=== PATIENT | female | born 1950 | race Caucasian/White ===

== ENCOUNTER → 2019-02-01 10:27 | Emergency (ER) | payer MEDICARE ==
[~2019-02-01 10:27] MED LIST: Diltiazem IV push/loading dose 5 MG/ML 5 ML vial (25 mg) IV PUSH ONE; HYDROmorphone TAB* 4 MG PO ONE; NS 0.9% 1000 ML** 1,000 ML IV ONE
--- NOTE | 2019-02-01 10:47 | ED ---
Palpitations / Dysrhythmia - HPI Summary HPI Summary: The patient is a 68 y/o F presenting to [facility] with a chief complaint of sudden onset fast heart palpitations starting yesterday 01/31/2019 and persisting into today 02/01/2019. She reports that last week, she was starting to go through a cardiac clearance for hip surgery due to hx of intermittent episodes of atrial fibrillation. She had seen Dr. Garcias and Dr. Larson and everything looked suitable until she went for an echocardiogram; she began having palpitations at this time, but they dissipated until yesterday when she went for a nuclear stress test. Since then, she's been experiencing constant palpitations. She denies CP and SOB. There are no aggravating or alleviating factors. Currently, she states, "This is the worst I've ever felt," but she is not in pain. She notes that she had been using Dilaudid for pain control of the right hip but ran out of the medications a few days ago, which she suspects is why she is having the palpitations. She previously came to the ED for dehydration a few weeks ago, and she reports she has been feeling better other than having difficulty sleeping. She was also previously on Eliquis for afib, but she stopped taking it because she didn't like it. Hx of HTN. FHx of cardiac disease including MN (father) and Afib (brother). 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 - History of Current Complaint Chief Complaint: EDDysrhythmPalp Time Seen by Provider: 02/01/19 10:33 Hx Obtained From: Patient Onset/Duration: Sudden Onset, Lasting Days - starting yesterday 01/31/2019, Still Present Timing: Constant Severity Initially: Mild Severity Currently: Moderate Character: Fast Aggravating: Nothing - possibly due to running out of Dilaudid Alleviating: Nothing - Allergy/Home Medications Allergies/Adverse Reactions: Allergies Allergy/AdvReac Type Severity Reaction Status Date / Time No Known Allergies Allergy Verified 02/01/19 10:32 Home Medications: Home Medications Furosemide TAB* [Lasix TAB*] 40 mg PO .TWICE WEEKLY 02/01/19 [History Confirmed 02/01/19] Lisinopril TAB* [Prinivil TAB*] 20 mg PO DAILY 02/01/19 [History Confirmed 02/01] Metoprolol Succinate XL TAB* [Toprol XL TAB*] 100 mg PO BID 02/01/19 [History Confirmed 02/01/19] Milk Thistle Seed Extract [Milk Thistle] 140 mg PO DAILY 02/01/19 [History Confirmed 02/01/19] Spironolactone TAB* [Aldactone TAB*] 25 mg PO DAILY 02/01/19 [History Confirmed 02/01/19] PMH/Surg Hx/FS Hx/Imm Hx Endocrine/Hematology History: Denies: Hx Diabetes Cardiovascular History: Reports: Hx Atrial Fibrillation, Hx Hypertension - Surgical History Surgical History: None Surgery Procedure, Year, and Place: none Infectious Disease History: No Infectious Disease History: Denies: Traveled Outside the [place] in Last 30 Days - Family History Known Family History: Positive: Cardiac Disease - father with fatal MN, brother with afib - Social History Alcohol Use: None Hx Substance Use: Yes Substance Use Type: Reports: None Substance Use Comment - Amount & Last Used: 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 Negative: Chest Pain Negative: Shortness Of Breath Positive: Other - right hip pain secondary to dislocation All Other Systems Reviewed And Are Negative: Yes Physical Exam - Summary Physical Exam Summary: Appearance: Well-appearing, Well-nourished, lying in bed comfortably Skin: Warm, dry, no obvious rash Eyes: sclera anicteric, no conjunctival pallor ENT: mucous membranes moist, pharynx appears normal Neck: Supple, nontender Respiratory: Clear to auscultation, no signs of respiratory distress Cardiovascular: Known to be tachycardic with HR of 150 bpm. No murmurs. Normal distal pulses in tibial and radial bilaterally. Abdomen: Soft, nontender, normal active bowel sounds present Musculoskeletal: Normal, Strength/ROM Intact Neurological: A&Ox3, awake and alert, mentation is normal, speech is fluent and appropriate Psychiatric: affect is normal, does not appear anxious or depressed Triage Information Reviewed: Yes Vital Signs On Initial Exam: Initial Vitals Temp Pulse Resp BP Pulse Ox 98.6 F 161 20 128/96 95 02/01/19 10:28 02/01/19 10:28 02/01/19 10:28 02/01/19 10:28 02/01/19 10:28 Vital Signs Reviewed: Yes Diagnostics - Vital Signs Vital Signs Temp Pulse Resp BP Pulse Ox 02/01/19 10:28 98.6 F 161 20 128/96 95 - Laboratory Result Diagrams: 02/01/19 11:18 02/01/19 11:18 Lab Statement: Any lab studies that have been ordered have been reviewed, and results considered in the medical decision making process. - EKG 1031 Cardiac Rate: Other Rate - 151 bpm EKG Rhythm: Atrial Flutter Summary of EKG Findings: Atrial flutter with 2:1 AVB. 1212 Cardiac Rate: Other Rate - 65 BPM Summary of EKG Findings: SR with periods of atrial fibrillation. Re-Evaluation - Re-Evaluation First Eval Re-Evaluation Time: 12:00 Change: Improved Comment: Per nurse, patient states her heart palpitations have resolved after medication. Second Eval Re-Evaluation Time: 12:35 Comment: I spoke with the patient concerning results thus far. Third Eval Re-Evaluation Time: 13:15 Comment: I discussed discharge plan with the patient. Course/Dx - Course Course Of Treatment: The patient is a 68 y/o F with hx of intermittent episodes of atrial fibrillation presenting to [facility] with a chief complaint of sudden onset fast heart palpitations starting yesterday during a nuclear stress test and persisting into today without CP or SOB. Previously on Eliquis for afib but she stopped taking it. Also reports pain in right hip treated with Dilaudid that she has ran out of. Hx of HTN. FHx of cardiac disease including MN (father ) and Afib (brother). Upon physical exam, the patient is known to have atrial fibrillation and is currently tachycardiac at 150 bpm. Blood work reveals 11.8, RBCs, Hgb of 16.7, Hct of 50, MCH of 32, abs neuts of 9.8, carbon dioxide of 20 , BUN of 42, creatinine of 1.27, glucose of 122, AST of 54, ALT of 56, but is otherwise normal. First troponin is 0.00. EKG reveals atrial flutter at 150 bpm with 2:1 AVB. Second EKG reveals SR at 65 BPM with periods of atrial fibrillation. In the ED course, the patient was administered Ns, Diltiazem Hcl, and Dilaudid. I spoke with the [facility] pharmacy and Dr. Garcias's office concerning the prescriptions that the patient has used since it appears that she had one prescription for Oxycodone early in January and one for Hydromorphone 60 tablets on 01/15, both prescribed by Dr. Garcias. I spoke with Dr. Mccormick at 1305 to update her on the patient's prescription history and plan for discharge with hydromorphone 4mg rx for one week. She is advised to follow up with Dr. Garcias for further medication, and continue medication prescribed by Dr. Larson. Patient is diagnosed with atrial flutter. She agrees with discharge home. - Diagnoses Provider Diagnoses: Atrial flutter, Osteoarthritis of hip, unspecified - Physician Notifications Discussed Care Of Patient With: Marichuy Mccormick - PCP Time Discussed With Above Provider: 13:05 Instructed by Provider To: Other - I spoke with the pharmacy and Dr. Garcias's office concerning the patient's prescription history. I also spoke with Dr. Mccormick to update her on results of the patient's visit and discharge home with rx for hydromorphone. Discharge - Sign-Out/Discharge Documenting (check all that apply): Patient Departure - Patient will be discharged home. Patient Received Moderate/Deep Sedation with Procedure: No - Discharge Plan Condition: Good Disposition: HOME Prescriptions: HYDROmorphone TAB* [Dilaudid TAB*] 4 mg PO Q6H PRN 7 Days #28 tab MDD 4 PRN Reason: Pain Patient Education Materials: Atrial Flutter (ED) Referrals: [facility] [Outside] - 2 Days Dominique Garcias MD [Medical Doctor] - Tracy Larson MD [Medical Doctor] - Additional Instructions: I sent in a prescription for dilaudid 4 mg, 1 every 6 hrs, #28 to [facility] in [place]. This should last a week, and should carry you through until you can resolve the issues with Dr. Garcias's office and the pharmacy. In the ED we cannot write for further prescriptions for opioids, so that would have to be through your PCP or Dr. Garcias going forward. With respect to your heart condition, continue the medication prescribed by your doctor. If you have another episode, contact Dr. Larson's office. You should see her in any event in followup, as she might want to change your medication to better control your heart condition. - Billing Disposition and Condition Condition: GOOD Disposition: Home - Attestation Statements Document Initiated by Jamie: Yes Documenting Moriahibe: Emerald Mijares Provider For Whom Jamie is Documenting (Include Credential): Dr. Modesto Bustamante MD Scribe Attestation: I, Emerald Mijares, scribed for Dr. Modesto Bustamante MD on 02/02/19 at 1214. Scribe Documentation Reviewed: Yes Provider Attestation: The documentation as recorded by the Emerald riggs accurately reflects the service I personally performed and the decisions made by me, Dr. Modesto Bustamante MD Status of Jamie Document: Viewed
--- OUTSIDE RECORDS SUMMARY | 2019-02-01 11:24 | XMS REPORT | Continuity of Care Document ---
:1950 External Reference #:[id number] Author Name Tayler Morgan Care Team Providers Name Role Phone Marichuy Mccormick DO Primary Care Physician Unavailable Payers Date Identification Numbers Payment Provider Subscriber Policy Number: [id number] Medicare Joel Judd PayID: [id number] [address] [place] [address] Problems Active Problems Provider Date Chronic atrial fibrillation Tracy Larson M.D. Onset: 01/19/2019 Localized, primary osteoarthritis of the pelvic Dominique Garcias M.D. 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 Tobacco Use Start: Unknown Light tobacco smoker (10 or fewer cigarettes/day) Smoking Status Reviewed: 02/01/19 Light tobacco smoker (10 or fewer cigarettes/day) ETOH Use Denies alcohol use Tobacco Use Start: Unknown Patient is a current smoker, smokes every day Recreational Drug Use Former Drug User Recreational Drug Use Former Drug User Heroin many, many years ago Exercise Type/Frequency Exercises sporadically Allergies, Adverse Reactions, Alerts Description No Known Drug Allergies Medications Active Medications SIG Qnty Indications Ordering Date Provider Trazodone HCL 1 by mouth as 30tabs Marichuy Mccormick, 02/01/2019 50mg Tablets needed at DO bedtime Hydromorphone HCL take 1 tab every 60tabs M25.551 Dominique Garcias, 01/15/2019 2mg 8 hours as M.D. Tablets needed for pain Hospital Bed Hospital bed. 1units M25.551 Dominique Garcias, 01/15/2019 Ht: 65" Wt: M.D. 140lbs. Right hip arthritis. m16.11 Oxycodone-Acetaminophen 1 tab by mouth 30tabs M25.551 Dominique Garcias, 2018 every 12 hours M.D. 5-325mg Tablets as needed for pain Lisinopril 1 by mouth every Unknown 20mg Tablets day Metoprolol Succinate ER 1 by mouth bid Unknown 100mg Tablets ER 24HR Spironolactone 1 by mouth every Unknown 25mg Tablets day Furosemide 1 by mouth twice Unknown 40mg Tablets weekly Ambien 1/2 to 1 tab at Unknown 10mg Tablets bedtime as needed Milk Thistle 1 capsule daily Unknown 140mg Capsules (melatonin) History Medications Meloxicam take one tab twice Unknown - 02/01/2019 7.5mg Tablets daily as needed for pain, avoid other nsaids Oxycodone-Acetaminophen 1 tabs by mouth every Unknown - 01/18 5-325mg 4-6 hours as needed for Tablets pain C 500/Macarena Hips 1 by mouth every day Unknown - 02/01/2019 500mg Tablets Medications Administered in Office Medication SIG Qnty Indications Ordering Provider Date Inj, Regadenoson, 0.1 MG Mike Arvizu, DO [facility] 01/31/2019 Injection Technetium TC 99M Mike Arvizu, DO [facility] 01/31/2019 Tetrofosmin, Per Unit Dose Up To 40 Millicuries Injection Technetium TC 99M Mike Arvizu, DO [facility] 01/31/2019 Tetrofosmin, Per Unit Dose Up To 40 Millicuries Injection Vital Signs Date Vital Result Comment 02/01/2019 9:31am Height 65 inches 5'5" Weight 152.00 lb Heart Rate 161 /min 120 apically BP Systolic Sitting 130 mmHg BP Diastolic Sitting 98 mmHg O2 % BldC Oximetry 95 % BMI (Body Mass Index) 25.3 kg/m2 01/19/2019 10:00am Height 65 inches 5'5" Weight 153.00 lb with shoes BP Systolic Sitting 118 mmHg ule reg cuff BP Diastolic Sitting 76 mmHg ule reg cuff BP Systolic Standing 128 mmHg ule reg cuff BP Diastolic Standing 80 mmHg ule reg cuff BMI (Body Mass Index) 25.5 kg/m2 01/15/2019 2:39pm Height 65 inches 5'5" Weight 140.00 lb Heart Rate 68 /min BP Systolic 117 mmHg BP Diastolic 84 mmHg Body Temperature 97.7 F O2 % BldC Oximetry 98 % BMI (Body Mass Index) 23.3 kg/m2 Results Test Date Facility Test Result H/L Range Note Order 02/01/2019 [facility] In-House EKG <pending> Procedures Date Code Description Status 02/01/2019 14486 EKG Tracing & Interpretation Completed 01/23/2019 43590 ECHO Transthoracic, Real-Time 2D With Doppler And Color Completed Flow 01/23/2019 12795 ECHO Transthoracic, Real-Time 2D With Doppler And Color Completed Flow 01/19/2019 91391 EKG Tracing & Interpretation Completed Encounters Type Date Location Provider Dx Diagnosis Office Visit 01/19/2019 [facility] Tracy Larson, M16.11 Unilateral primary 9:40a Of [facility] [place] [facility] [place]. osteoarthritis, right hip Z01.810 Encounter for preprocedural cardiovascular examination I48.2 Chronic atrial fibrillation I10 Essential (primary) hypertension R06.02 Shortness of breath Z82.49 Family hx of ischem heart dis and oth dis of the circ sys Office Visit 01/15/2019 2:[facility]p [facility] Dominique Garcias, M25.551 Pain in right Of [facility] hip M16.11 Unilateral primary osteoarthritis, right hip Plan of Treatment Future Appointment(s):02/08/2019 11:40 am - Jp Joyner MD at [facility] Internal Medicine - [address]/14/2019 11:30 am - Mary Wade [facility]AutumnPAutumn at [place] Ijxwmbzscp41/22/2019 11:30 am - Dominique Garcias M.D. at [facility]02/16/2019 11:30 am - Dominique Dieter, M.D. at [facility]02/01/2019 - Marichuy Mccormick, DOI48.3 Typical atrial flutterFollow up:one weekI48.2 Chronic atrial fibrillation
--- OUTSIDE RECORDS SUMMARY | 2019-02-01 11:25 | XMS REPORT | Continuity of Care Document ---
:1950 External Reference #:[id number] Author Name Regina Luciano Care Team Providers Name Role Phone Marichuy Mccormick DO Primary Care Physician Unavailable Payers Date Identification Numbers Payment Provider Subscriber Policy Number: [id number] Medicare Joel Judd PayID: [id number] [address] [place] [address] Problems Active Problems Provider Date Chronic atrial fibrillation Tracy Larson M.D. Onset: 01/19/2019 Localized, primary osteoarthritis of the pelvic Dominique Garcias M.D. 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 Tobacco Use Start: Unknown Light tobacco smoker (10 or fewer cigarettes/day) Smoking Status Reviewed: 01/19/19 Light tobacco smoker (10 or fewer cigarettes/day) ETOH Use Denies alcohol use Tobacco Use Start: Unknown Patient is a current smoker, smokes every day Recreational Drug Use Former Drug User Recreational Drug Use Former Drug User Heroin many, many years ago Exercise Type/Frequency Exercises sporadically Allergies, Adverse Reactions, Alerts Description No Known Drug Allergies Medications Active Medications SIG Qnty Indications Ordering Date Provider Hydromorphone HCL take 1 tab every 60tabs [...] by mouth twice Unknown 40mg Tablets weekly Meloxicam take one tab Unknown 7.5mg Tablets twice daily as needed for pain, avoid other nsaids Ambien 1/2 to 1 tab at Unknown 10mg Tablets bedtime as needed C 500/Macarena Hips 1 by mouth every Unknown 500mg day Tablets Milk Thistle 1 capsule daily Unknown 140mg Capsules (melatonin) History Medications Oxycodone-Acetaminophen 1 tabs by mouth Unknown - 5-325mg Tablets every 4-6 hours 01/18/2019 as needed for pain Vital Signs Date Vital Result Comment 01/19/2019 10:00am Height 65 inches 5'5" Weight [...] % BMI (Body Mass Index) 23.3 kg/m2 Procedures Date Code Description Status 01/23/2019 14887 ECHO Transthoracic, Real-Time 2D With Doppler And Color Completed Flow 01/23/2019 70351 ECHO Transthoracic, Real-Time 2D With Doppler And Color Completed Flow 01/19/2019 53443 EKG Tracing & Interpretation Completed Encounters Type Date Location Provider Dx Diagnosis Office Visit 01/19/2019 [facility] Tracy Larson, M16.11 Unilateral primary 9:40a Of [facility] AT [facility] [place]. osteoarthritis, right hip Z01.810 Encounter for preprocedural cardiovascular examination I48.2 Chronic atrial fibrillation I10 Essential (primary) hypertension R06.02 Shortness of breath Z82.49 Family hx of ischem heart dis and oth dis of the circ sys Office Visit 01/15/2019 2:00p [facility] Dominique Garcias, M25.551 Pain in right Of [facility] [place] hip M16.11 Unilateral primary osteoarthritis, right hip Plan of Treatment Future Appointment(s):02/01/2019 9:40 am - Marichuy Mccormick DO at [facility] Internal Medicine - [address]/14/2019 11:30 am - Mary Wade N.PAutumn at [facility]01/31/2019 11:00 am - Mike Arvizu DO FACC at [facility]03/01/2019 11:30 am - Dominique Garcias M.D. at [facility]02/16/2019 11:30 am - Dominique Garcias M.D. at [facility]01/19/2019 - Tracy Larson M.D.M16.11 Unilateral primary osteoarthritis, right hipZ01.810 Encounter for preprocedural cardiovascular examinationNew Orders:Stress Test, Pharmacologic Nuclear (Lexiscan), Scheduled: 01/31/19Follow up:after testing VOLUNTEER SPECIALIST or MDI48.2 Chronic atrial fibrillationNew Orders:Stress Test , Pharmacologic Nuclear (Lexiscan), Scheduled: 01/31/19Follow up:Release primary MD and aerial lineman: Echo, ECG, stress if available, all labs including lipds, most recent note from each of them.I10 Essential (primary) [id number] Shortness of breathNew Orders:Stress Test, Pharmacologic Nuclear (Lexiscan), Scheduled: 01/31/19Z82.49 Family history of ischemic heart disease and other diseases
--- OUTSIDE RECORDS SUMMARY | 2019-02-01 11:25 | XMS REPORT | Continuity of Care Document ---
:1950 External Reference #:[id number] Author Name Tayler Mariee Care Team Providers Name Role Phone Patient's Choice Primary Care Physician Unavailable Payers Date Identification Numbers Payment Provider Subscriber Policy Number: [id number] Medicare Joel Judd PayID: [id number] [address] [place] [address] Problems Active Problems Provider Date Chronic atrial fibrillation Tracy Larson M.D. Onset: 01/19/2019 Localized, primary osteoarthritis of the pelvic Dominique Garcias M.D. 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 at [facility]01/23/2019 7:45 am - Ica ECHO Schedule at [facility] 11:00 am - Mike Arvizu DO FACC at [facility]2018 11:30 am - Dominique Garcias M.D. at [facility].02/16/2019 11 :30 am - Dominique Garcias M.D. at [facility].01/19/2019 - Trcay Larson M.D.M16.11 Unilateral primary osteoarthritis, right hipZ01.810 Encounter for preprocedural cardiovascular examinationNew Orders:Stress Test, Pharmacologic Nuclear (Lexiscan), Scheduled: 01/31/19Follow up:after testing STRUCTURAL WORKER or MDI48.2 Chronic atrial fibrillationNew Orders:Echocardiogram, Scheduled: Stress Test, Pharmacologic Nuclear (Lexiscan), Scheduled: 01/31/19Follow up :Rlease primary MD and marine oil terminal superintendent: Echo, ECG, stress if available, all labs including lipds, most recent note from each of them.I10 Essential (primary) [id number] Shortness of breathNew Orders:Stress Test, Pharmacologic Nuclear (Lexiscan), Scheduled: 01/31/19
--- OUTSIDE RECORDS SUMMARY | 2019-02-01 11:25 | XMS REPORT | Continuity of Care Document ---
:1950 External Reference #:[id number] Author Name Regina Luciano Care Team Providers Name Role Phone Marichuy Mccormick DO Primary Care Physician Unavailable Payers Date Identification Numbers Payment Provider Subscriber Policy Number: [id number] Medicare Joel Judd PayID: [id number] [place] [address] Problems Active Problems Provider Date Chronic atrial fibrillation Tracy Larson M.D. Onset: 01/19/2019 Localized, primary osteoarthritis of the pelvic Dominique Garcias M.D. 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 osteoarthritis, right hip Z01.810 Encounter for [...] 9:40 am - Marichuy Mccormick DO at [facility] Internal Medicine - [address]/14/2019 11:30 am - Mary Wade N.PAutumn at [facility]01/31/2019 11:00 am - Mike Arvizu DO FACC at [facility]03/01/2019 11:30 am - Dominique Garcias M.D. at [facility].A.02/16/2019 11:30 am - Dominique Garcias M.D. at [facility]01/19/2019 - Tracy Larson M.D.M16.11 Unilateral primary osteoarthritis, right hipZ01.810 Encounter for preprocedural cardiovascular examinationNew Orders:Stress Test, Pharmacologic Nuclear (Lexiscan), Scheduled: 01/31/19Follow up:after testing DRAW PRESS OPERATOR or MDI48.2 Chronic atrial fibrillationNew Orders:Stress Test , Pharmacologic Nuclear (Lexiscan), Scheduled: 01/31/19Follow up:Release primary MD and castables worker: Echo, ECG, stress if available, all labs including lipds, most recent note from each of them.I10 Essential (primary) [id number] Shortness of breathNew Orders:Stress Test, Pharmacologic Nuclear (Lexiscan), Scheduled: 01/31/19Z82.49 Family history of ischemic heart disease and other diseases
--- OUTSIDE RECORDS SUMMARY | 2019-02-01 11:25 | XMS REPORT | Continuity of Care Document ---
:1950 External Reference #:[id number] Author Name Regina Luciano Care Team Providers Name Role Phone Marichuy Mccormick DO Primary Care Physician Unavailable Payers Date Identification Numbers Payment Provider Subscriber Policy Number: [id number] Medicare Joel Judd PayID: [id number] [place] [address] Problems Active Problems Provider Date Chronic atrial fibrillation Tracy Larson M.D. Onset: 01/19/2019 Localized, primary osteoarthritis of the pelvic Dominique Garcias M.D. 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 Tobacco Use Start: Unknown Light tobacco smoker [...] kg/m2 Procedures Date Code Description Status 01/23/2019 51840 ECHO Transthoracic, Real-Time 2D With Doppler And Color Completed Flow 01/23/2019 29764 ECHO Transthoracic, Real-Time 2D With Doppler And Color Completed Flow 01/19/2019 68030 EKG Tracing & Interpretation Completed Encounters Type Date Location Provider Dx Diagnosis Office Visit 01/19/2019 [facility] Tracy Larson, M16.11 Unilateral primary 9:40a Of [facility] AT [facility] [...] 9:40 am - Marichuy Mccormick DO at [facility] Internal Medicine - [address]/14/2019 11:30 am - Mary Wade N.PAutumn at [facility]01/31/2019 11:00 am - Mike Arvizu DO FACC at [facility]03/01/2019 11:30 am - Dominique Garcias M.D. at [facility].A.02/16/2019 11:30 am - Dominique Garcias M.D. at [facility]01/19/2019 - Tracy Larson M.D.M16.11 Unilateral primary osteoarthritis, right hipZ01.810 Encounter for preprocedural cardiovascular examinationNew Orders:Stress Test, Pharmacologic Nuclear (Lexiscan), Scheduled: 01/31/19Follow up:after testing LEAD HANDLER or MDI48.2 Chronic atrial fibrillationNew Orders:Stress Test , Pharmacologic Nuclear (Lexiscan), Scheduled: 01/31/19Follow up:Release primary MD and wet process operator: Echo, ECG, stress if available, all labs including lipds, most recent note from each of them.I10 Essential (primary) llwnpnsyyxaoW72.02 Shortness of breathNew Orders:Stress Test, Pharmacologic Nuclear (Lexiscan), Scheduled: 01/31/19Z82.49 Family history of ischemic heart disease and other diseases
--- OUTSIDE RECORDS SUMMARY | 2019-02-01 11:25 | XMS REPORT | Continuity of Care Document ---
:1950 External Reference #:[id number] Author Name Regina Luciano Care Team Providers Name Role Phone Marichuy Mccormick DO Primary Care Physician Unavailable Payers Date Identification Numbers Payment Provider Subscriber Policy Number: [id number] Medicare Joel Judd PayID: [id number] [place] [address] Problems Active Problems Provider Date Chronic atrial fibrillation Tracy Larson M.D. Onset: 01/19/2019 Localized, primary osteoarthritis of the pelvic Dominique Garcias M.D. 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 osteoarthritis, right hip [...] am - Marichuy Mccormick DO at [facility] Internal Medicine - [address]/14/2019 11:30 am - Mary Wade N.PAutumn at [facility]01/31/2019 11:00 am - Mike Arvizu DO FACC at [facility]03/01/2019 11:30 am - Dominique Garcias M.D. at [facility].A.02/16/2019 11:30 am - Dominique Garcias M.D. at [facility]01/19/2019 - Tracy Larson M.D.M16.11 Unilateral primary osteoarthritis, right hipZ01.810 Encounter for preprocedural cardiovascular examinationNew Orders:Stress Test, Pharmacologic Nuclear (Lexiscan), Scheduled: 01/31/19Follow up:after testing MILL TENDER SECOND OPERATOR or MDI48.2 Chronic atrial fibrillationNew Orders:Stress Test , Pharmacologic Nuclear (Lexiscan), Scheduled: 01/31/19Follow up:Release primary MD and power system electrical engineer: Echo, ECG, stress if available, all labs including lipds, most recent note from each of them.I10 Essential (primary) crgjkloqjmvvI48.02 Shortness of breathNew Orders:Stress Test, Pharmacologic Nuclear (Lexiscan), Scheduled: 01/31/19Z82.49 Family history of ischemic heart disease and other diseases
--- OUTSIDE RECORDS SUMMARY | 2019-02-01 11:25 | XMS REPORT | Continuity of Care Document ---
:1950 External Reference #:[id number] Author Name Nieves Dotson Care Team Providers Name Role Phone Patient's Choice Primary Care Physician Unavailable Payers Date Identification Numbers Payment Provider Subscriber Policy Number: [id number] Medicare Joel Judd PayID: [id number] [facility] [address] [place] [address] Problems Active Problems Provider Date Localized, primary osteoarthritis of the pelvic Dominique Garcias M.D. 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 ETOH Use Denies alcohol use Tobacco Use Start: Unknown Patient is a current smoker, smokes every day Smoking Status Reviewed: 01/15/19 Patient is a current smoker, smokes every day Exercise Type/Frequency Exercises sporadically Allergies, Adverse Reactions, [...] day Metoprolol Succinate ER 1 by mouth every Unknown day 100mg Tablets ER 24HR Spironolactone 1 by mouth every Unknown 25mg Tablets day Furosemide 1 by mouth every Unknown 40mg Tablets day Meloxicam take one tab Unknown 7.5mg Tablets twice daily as needed for pain, avoid other nsaids Oxycodone-Acetaminophen 1 tabs by mouth Unknown every 4-6 hours 5-325mg Tablets as needed for pain Ambien 1/2 to 1 tab at Unknown 10mg Tablets bedtime as needed Vital Signs Date Vital Result Comment 01/15/2019 2:39pm Height 65 inches 5'5" Weight 140.00 lb Heart Rate 68 /min BP Systolic 117 mmHg BP Diastolic 84 mmHg Body Temperature 97.7 F O2 % BldC Oximetry 98 % BMI (Body Mass Index) 23.3 kg/m2 Plan of Treatment Future Appointment(s):02/16/2019 11:30 am - Dominique Garcias M.D. at [facility]01/15/2019 - Dominique Garcias M.D.M25.551 Pain in right hipNew Medication:Hydromorphone HCL 2 mg - take 1 tab every 8 hours as needed for painHospital Bed - Hospital bed. Ht: 65" Wt: 140lbs. Right hip arthritis. m16.11Oxycodone-Acetaminophen 5-325 mg - 1 tab by mouth every 12 hours as needed for painFollow up:Follow up: 7-10 days before qwvisusZ65.11 Unilateral primary osteoarthritis, right hipReferral:Saul Lazaro MD, FACC, FASNC, Cardiovsclr Disease
--- OUTSIDE RECORDS SUMMARY | 2019-02-01 11:25 | XMS REPORT | Continuity of Care Document ---
:1950 External Reference #:[id number] Author Name Regina Luciano Care Team Providers Name Role Phone Marichuy Mccormick DO Primary Care Physician Unavailable Payers Date Identification Numbers Payment Provider Subscriber Policy Number: [id number] Medicare Joel Judd PayID: [id number] [place] [address] Problems Active Problems Provider Date Chronic atrial fibrillation Tracy Larson M.D. Onset: 01/19/2019 Localized, primary osteoarthritis of the pelvic Dominique Garcias M.D. 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 osteoarthritis, right hip Z01.810 Encounter for [...] 9:40 am - Marichuy Mccormick DO at [facility] Internal Medicine - [address]/14/2019 11:30 am - Mary Wade N.PAutumn at [facility]01/31/2019 11:00 am - Mike Arvizu DO FACC at [facility]03/01/2019 11:30 am - Dominique Garcias M.D. at [facility].A.02/16/2019 11:30 am - Dominique Garcias M.D. at [facility]01/19/2019 - Tracy Larson M.D.M16.11 Unilateral primary osteoarthritis, right hipZ01.810 Encounter for preprocedural cardiovascular examinationNew Orders:Stress Test, Pharmacologic Nuclear (Lexiscan), Scheduled: 01/31/19Follow up:after testing MONTESSORI PARAPROFESSIONAL or MDI48.2 Chronic atrial fibrillationNew Orders:Stress Test , Pharmacologic Nuclear (Lexiscan), Scheduled: 01/31/19Follow up:Release primary MD and security control room officer: Echo, ECG, stress if available, all labs including lipds, most recent note from each of them.I10 Essential (primary) kqmjydohwoccE29.02 Shortness of breathNew Orders:Stress Test, Pharmacologic Nuclear (Lexiscan), Scheduled: 01/31/19Z82.49 Family history of ischemic heart disease and other diseases
--- OUTSIDE RECORDS SUMMARY | 2019-02-01 11:25 | XMS REPORT | Continuity of Care Document ---
:1950 External Reference #:[id number] Author Name Regina Luciano Care Team Providers Name Role Phone Marichuy Mccormick DO Primary Care Physician Unavailable Payers Date Identification Numbers Payment Provider Subscriber Policy Number: [id number] Medicare Joel Judd PayID: [id number] [place] [address] Problems Active Problems Provider Date Chronic atrial fibrillation Tracy Larson M.D. Onset: 01/19/2019 Localized, primary osteoarthritis of the pelvic Dominique Garcias M.D. 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 osteoarthritis, right hip Z01.810 Encounter for [...] 9:40 am - Marichuy Mccormick DO at [facility] Internal Medicine - [address]/14/2019 11:30 am - Mary Wade N.PAutumn at [facility]01/31/2019 11:00 am - Mike Arvizu DO FACC at [facility]03/01/2019 11:30 am - Dominique Garcias M.D. at [facility].A.02/16/2019 11:30 am - Dominique Garcias M.D. at [facility]01/19/2019 - Tracy Larson M.D.M16.11 Unilateral primary osteoarthritis, right hipZ01.810 Encounter for preprocedural cardiovascular examinationNew Orders:Stress Test, Pharmacologic Nuclear (Lexiscan), Scheduled: 01/31/19Follow up:after testing DOOR INSTALLER or MDI48.2 Chronic atrial fibrillationNew Orders:Stress Test , Pharmacologic Nuclear (Lexiscan), Scheduled: 01/31/19Follow up:Release primary MD and guest relations receptionist: Echo, ECG, stress if available, all labs including lipds, most recent note from each of them.I10 Essential (primary) mtsgxjywnuniK08.02 Shortness of breathNew Orders:Stress Test, Pharmacologic Nuclear (Lexiscan), Scheduled: 01/31/19Z82.49 Family history of ischemic heart disease and other diseases
[2019-02-01 11:32] LABS: ABS Lymphocytes 1.2 10^3/ul (1.0-4.8); ABS Monocytes 0.8 10^3/ul (0-0.8); ABS Neutrophils 9.8 10^3/ul (1.5-7.7); Eosinophil % 0.2 %; Hematocrit 50 % (35-47); Hemoglobin 16.7 g/dL (12.0-16.0); Lymphocyte % 10.1 %; Mean Corpuscular HGB Conc 34 g/dL (31-36); Mean Corpuscular Hemoglobin 32 pg (27-31); Mean Corpuscular Volume 95 fL (80-97); Mean Platelet Volume 8.8 fL (7.4-10.4); Platelet Count 220 10^3/uL (150-450); Red Blood Count 5.22 10^6 /uL (3.70-4.87); Red Cell Distribution Width 14 % (10-15); White Blood Count 11.8 10^3/uL (3.5-10.8)
[2019-02-01 11:41] LABS: INR 0.91 (0.82-1.09)
[2019-02-01 11:45] LABS: Albumin/Globulin Ratio 1.2 (1-3); BUN/Creatinine Ratio 33.1 (8-20); Calcium 9.8 mg/dL (8.6-10.3); EGFR African American 50.8 (>60); Globulin 3.4 g/dL (2-4); Potassium 4.3 mmol/L (3.5-5.0); Total Bilirubin 0.6 mg/dL (0.2-1.0); Total Protein 7.4 g/dL (6.4-8.9)
[2019-02-01 12:24] LABS: TSH (Thyroid Stimulating Horm) 0.92 mcIU/mL (0.34-5.60)
[2019-02-01 13:35] VITALS: BP 134/96
== END | disposition home or self-care (01) ==
LOC: ED 10:27
DX: I48.92 Unspecified atrial flutter (principal); I10 Essential (primary) hypertension; I48.91 Unspecified atrial fibrillation; F17.210 Nicotine dependence, cigarettes, uncomplicated; Z79.899 Other long term (current) drug therapy
CPT/HCPCS: 36415; 80053; 84443; 84484; 85025; 85610; 93005; 96361; 96374; 99283; A9270-GY

== ENCOUNTER 2019-02-20 09:30 | Inpatient (IN) | payer MEDICARE, OTHER ==
--- NOTE | 2019-02-19 11:40 | HP ---
AMENDED REPORT NOW INCLUDES DESIGNATED COSIGNER AND DATE OF ADMISSION PREOPERATIVE HISTORY AND PHYSICAL: DATE OF ADMISSION: 02/20/19 ATTENDING PROVIDER: Dr. Garcias * (DICTATED BY TAJ ORTIZ) CHIEF COMPLAINT: Right hip pain. HISTORY OF PRESENT ILLNESS: This is a 68-year-old female with 2 years of increasingly severe right hip pain. She describes this as 8/10 in the right groin. The pain increases when walking more than half a block and over the last 6 months, she has been in severe pain daily. She has difficulty standing or rising from a seated position. She has tried using a cane, attending physical therapy, using antiinflammatories and narcotic pain medications without relief. She has undergone an intraarticular steroid injection previously and is interested in pursuing right total hip arthroplasty. PAST MEDICAL HISTORY: Hypertension, atrial fibrillation, COPD, emphysema, hepatitis C, history of drug addiction and abuse with heroin. CURRENT MEDICATIONS: 1. Lisinopril 20 mg 1 tab daily. 2. Metoprolol succinate ER 100 mg 1 tab daily. 3. Spironolactone 25 mg 1 tab daily. 4. Furosemide 40 mg 2 times weekly. 5. Trazodone 50 mg p.r.n. at bedtime. 6. Hydromorphone 4 mg q.8 hours. 7. Advil p.r.n. ALLERGIES: No known drug allergies. SOCIAL HISTORY: The patient is not working. She lives alone and will be staying with friends who will care for her postoperatively. She smokes 5 cigarettes daily and is attempting to decrease that amount. She denies alcohol or recreational drug use, although she did have a relapse with heroin use 3 years ago. She is minimally active with exercise. REVIEW OF SYSTEMS: She denies headache, lightheadedness, balance problems, or issues with chest pain with exertion or shortness of breath with exertion. A 14 - point review of systems is, otherwise, negative. PHYSICAL EXAMINATION GENERAL: She is a well-developed; well-nourished; thin female, seated on exam chair, in no acute distress with appropriate affect. VITAL SIGNS: Height 65 inches, weight 140. Blood pressure 117/84, pulse is 68. HEENT: Normocephalic, atraumatic. Hearing and vision are grossly intact with extraocular movements intact. NECK: The trachea is midline and symmetrical. LUNGS: Clear to auscultation. No wheezes, rales, or rhonchi appreciated. HEART: Irregular rate and rhythm. No murmurs, rubs, or gallops noted. ABDOMEN: Nondistended, nontender. Bowel sounds present. MUSCULOSKELETAL: Right lower extremity: Skin is pink, dry, and intact without obvious abrasions or open wounds. No palpable masses or lymph nodes. Hip flexion is 70 degrees with severe pain, 0 internal or external rotation due to pain. No distal edema, varicosities, or hyperreflexivity. She has 5/5 strength and equal dorsiflexion and plantarflexion in the right ankle. Sensation is intact throughout with 2+ dorsalis pedis pulse. GENITOURINARY: Deferred. IMAGING: Radiographs of the right hip show severe end-stage arthritis and bone -on- bone contact. There is subchondral sclerosis, osteophyte formation, and subchondral cyst formation. ASSESSMENT: Right hip osteoarthritis. PLAN: Right total hip arthroplasty with Dr. Garcias. The patient's questions were answered. Dr. Garcias had a discussion with the patient about prescription use of narcotics and pain management postoperatively. She understands she will be using Eliquis for blood clot prevention postoperatively and will follow up with our office postoperatively. TAJ ORTIZ [id number]/CPS #: [id number] MTDD
[~2019-02-20 09:30] MED LIST changes: +Acetaminophen TAB* 325 MG PO ONE; +Buffered Lidocaine 1% SYRIN* 1 ML/SYRINGE INTRADERM ONE; +Dexamethasone IV* 4 MG/ML 1 ML (4 MG) IV SLOW PU ONE; -Diltiazem IV push/loading dose 5 MG/ML 5 ML vial (25 mg) IV PUSH ONE; +Famotidine TAB* 20 MG PO ONE; +Gabapentin CAP(*) 300 MG PO ONE; -HYDROmorphone TAB* 4 MG PO ONE; +Lactated Ringers 1000 ML Bag* 1,000 ML IV SCH; -NS 0.9% 1000 ML** 1,000 ML IV ONE; +celeCOXIB CAP* 200 MG PO ONE
--- NOTE | 2019-03-14 17:09 | HP ---
Amended report to enter cosigning physician. PREOPERATIVE HISTORY AND PHYSICAL: DATE OF ADMISSION/SURGERY: 03/20/19 SURGEON: Dr. Dominique Garcias* (dictated by TAJ Velasquez). PROCEDURE: Right total hip arthroplasty. CHIEF COMPLAINT: Right hip pain. HISTORY OF PRESENT ILLNESS: Ms. Judd is a 68-year-old female with progressively painful right hip due to severe arthritis. She has tried to manage this conservatively with anti-inflammatories, physical therapy, ice, and rest without permanent relief and she is seeking surgical intervention at this time. PAST MEDICAL HISTORY: Hypertension, atrial fibrillation, COPD, emphysema, hepatitis C, history of drug addiction and abuse with heroin. PAST SURGICAL HISTORY: None reported. CURRENT MEDICATIONS: 1. Digoxin 250 mcg 1 tab by mouth daily. 2. Trazodone HCl 50 mg 1 by mouth as needed at bedtime. 3. Metoprolol succinate ER 100 mg 1 by mouth twice daily. 4. Furosemide 40 mg 1 tab by mouth twice weekly. 5. Oxycodone 1 by mouth 4 times daily as needed for pain. ALLERGIES: None. FAMILY HISTORY: None. SOCIAL HISTORY: She lives with a friend, who will be caring for her postoperatively. She denies alcohol use, but admits to tobacco use and she has been clean and sober for years and reports a history of heroin use. REVIEW OF SYSTEMS: A 14-point review of systems is reviewed with the patient today and is positive for right hip pain, but she denies headache, lightheadedness, balance problems, chest pain with exertion, or shortness of breath with exertion, and systems are otherwise negative. PHYSICAL EXAMINATION GENERAL: She is a well-developed, well-nourished female, seated in exam chair, in no acute distress, with appropriate affect. VITAL SIGNS: Height 65 inches, weight 153 pounds. Pulse 55, blood pressure 128 /82, respirations 16. HEENT: Normocephalic, atraumatic. Hearing and vision are grossly intact, with extraocular movements intact. NECK: The trachea is midline and symmetrical. CHEST: Lungs are clear to auscultation. No wheezes, rales, or rhonchi noted. CARDIO: Today regular rate and rhythm. Normal S1, S2. No murmurs, rubs, or gallops noted. ABDOMEN: Nondistended. Bowel sounds present. GENITOURINARY: Deferred. MUSCULOSKELETAL: Right lower extremity: Skin is pink, dry, and intact without abrasions or open wounds. Hip flexion is 70 degrees with severe pain with 0 degrees of rotation because of pain. No distal edema, varicosity, or hyperreflexia is noted. She has 5/5 strength against resistance in 4 planes in the right ankle with intact sensation and a 2+ dorsalis pedis pulse. IMAGING: Radiographs of the right hip show severe end-stage osteoarthritis with glve-vn-sdmy contact. There is subchondral sclerosis, osteophyte formation , and subchondral cyst formation. ASSESSMENT: Right hip severe osteoarthritis. PLAN: Right total hip arthroplasty with Dr. Garcias. The patient's questions were answered and she would like to proceed. Dr. Garcias discussed the risks and benefits of surgery at today's visit. Pain medications will be dispensed postoperatively and the patient will follow up in our clinic 10 to 14 days after surgery. TAJ ORTIZ [id number]/[facility] #: [id number] ALFREDO
[2019-03-19] MEDS ORDERED: Buffered Lidocaine 1% SYRIN* 1 ML/SYRINGE INTRADERM ONE (10:43)
[2019-03-20] MEDS ORDERED: Lactated Ringers 1000 ML Bag* 1,000 ML IV SCH (06:00)
[2019-03-20] MEDS ORDERED: Famotidine IV* 10 MG/ML 2 ML (20 mg) IV ONE (06:00)
[2019-03-20] MEDS ORDERED: Midazolam* 1 MG/ML 5 ML VIAL (5 MG) ONE (11:19)
[2019-03-20] MEDS ORDERED: fentaNYL* 50 MCG/ML 2 ML VIAL (100 MCG VIAL) ONE (11:20)
--- OUTSIDE RECORDS SUMMARY | 2019-03-20 11:30 | XMS REPORT | Continuity of Care Document ---
:1950 External Reference #:[id number] Author Name Marichuy Mccormick DO (transmitted by agent of provider Tayler Morgan) Address [address] [facility] [place] [address] Care Team Providers Name Role Phone Dominique Garcias M.D. - Adult Care Team Information Cooling Pan Tender [phone] Reconstructive Orthopaedic Surgery Marichuy Mccormick DO - Hospitalist Care Team Information Cooling Pan Tender [phone] Problems Active Problems Provider Date Localized, primary osteoarthritis of the pelvic Dominique Garcias M.D. Onset: 02/2019 region and thigh Chronic atrial fibrillation Tracy Larson M.D. Onset: 01/19/2019 Tricuspid valve regurgitation Jp Joyner MD Onset: 02/08/2019 Cigarette smoker Jp Joyner MD Onset: 02/08/2019 Social History Type Date Description Comments Sex Unknown Tobacco Use Start: Unknown Light tobacco smoker (10 or fewer cigarettes/day) Smoking Status Reviewed: 02/19/19 Light tobacco smoker (10 or fewer cigarettes/day) ETOH Use Denies alcohol use Tobacco Use Start: Unknown Patient is a current smoker, smokes every day Recreational Drug Use Former Drug User Recreational Drug Use Former Drug User Heroin many, many years ago Exercise Type/Frequency Exercises sporadically Allergies, Adverse Reactions, Alerts Description No Known Drug Allergies Medications Active Medications SIG Qnty Indications Ordering Date Provider Augmentin 1 tab by mouth 6tabs N39.0 Marichuy Mccormick, 02/19/2019 875-125mg Tablets twice a day DO Oxycodone-Acetaminophen 1-2 tabs by 30tabs M25.551 Dominique Garcias, 2018 mouth every 8 M.D. 5-325mg Tablets hours as needed for pain Digox Take 1 Tablet By 90tabs I48.3 Jp Joyner MD 02/08/2019 250mcg Tablets Mouth Once Daily Trazodone HCL 1 by mouth as 30tabs Marichuy Mccormick, 02/01/2019 50mg Tablets needed at DO bedtime Hospital Bed Hospital bed. 1units M25.551 Dominique Garcias, 01/15/2019 Ht: 65" Wt: M.D. 140lbs. Right hip arthritis. m16.11 Lisinopril 1 by mouth every Unknown 20mg Tablets day Metoprolol Succinate ER 1 by mouth bid Unknown 100mg Tablets ER 24HR Spironolactone 1 by mouth every Unknown 25mg Tablets day Furosemide 1 by mouth twice Unknown 40mg Tablets weekly Milk Thistle 1 capsule daily Unknown 140mg Capsules (melatonin) History Medications Hydromorphone HCL take 1 tab 60tabs M25.551 Dominique Garcias, 01/15/2019 - 2mg every 8 hours M.D. 02/19/2019 Tablets as needed for pain Oxycodone-Acetaminophe 1 tab by mouth 30tabs M25.551 Dominique Garcias, 2018 - n every 12 hours M.D. 02/06/2019 5-325mg Tablets as needed for pain Medications Administered in Office Medication SIG Qnty Indications Ordering Provider Date Inj, Regadenoson, 0.1 MG Mike Arvizu DO [facility] 01/31/2019 Injection Technetium TC 99M Mike Arvizu DO [facility] 01/31/2019 Tetrofosmin, Per Unit Dose Up To 40 Millicuries Injection Technetium TC 99M Mike Arvizu DO [facility] 01/31/2019 Tetrofosmin, Per Unit Dose Up To 40 Millicuries Injection Immunizations Description No Information Available Vital Signs Date Vital Result Comment 02/19/2019 10:54am Height 65 inches 5'5" Weight 152.25 lb Heart Rate 73 /min BP Systolic 132 mmHg BP Diastolic 85 mmHg Body Temperature 97.9 F O2 % BldC Oximetry 96 % BMI (Body Mass Index) 25.3 kg/m2 02/16/2019 11:34am Height 65 inches 5'5" Weight 153.00 lb Heart Rate 108 /min BP Systolic 136 mmHg BP Diastolic 72 mmHg BMI (Body Mass Index) 25.5 kg/m2 Results Test Date Facility Test Result H/L Range Note CBC Auto 02/16/2019 [facility] White Blood 9.0 10^3/uL Normal 3.5-10.[address] [place] [address] [phone] Red Blood Count 4.95 10^6/uL High 3.70-4.87 Hemoglobin 16.0 g/dL Normal 12.0-16.0 Hematocrit 47 % Normal 35-47 Mean Corpuscular Volume 96 fL Normal 80-97 Mean Corpuscular Hemoglobin 32 pg High 27-31 Mean Corpuscular HGB Conc 34 g/dL Normal 31-36 Red Cell Distribution Width 13 % Normal 10-15 Platelet Count 217 10^3/uL Normal 150-450 Mean Platelet Volume 9.2 fL Normal 7.4-10.4 Abs Neutrophils 6.5 10^3/uL Normal 1.5-7.7 Abs Lymphocytes 1.7 10^3/uL Normal 1.0-4.8 Abs Monocytes 0.5 10^3/uL Normal 0-0.8 Abs Eosinophils 0.2 10^3/uL Normal 0-0.6 Abs Basophils 0.1 10^3/uL Normal 0-0.2 Abs Nucleated RBC 0.0 10^3/uL Granulocyte % 72.6 % Lymphocyte % 18.6 % Monocyte % 6.1 % Eosinophil % 1.8 % Basophil % 0.9 % Nucleated Red Blood Cells % 0.1 Inr/Protime 02/16/2019 [facility] Inr 0.91 Normal 0.82-1.[address] [place] [address] [phone] Laboratory test 02/16/2019 [facility] Partial 35.9 Normal 26.0 -38.[address] [place] [address] Time PTT [phone] Urinalysis 02/16/2019 [facility] Urine Color Yellow Profile [address] [place] [address] [phone] Urine Appearance Turbid Urine Specific [place] 1.013 Normal 1.010-1.030 Urine pH 5.0 Normal 5-9 Urine Urobilinogen Negative Negative Urine Ketones Negative Negative Urine Protein 1+(30 mg/dL) Abnormal Negative Urine Leukocytes 3+ Abnormal Negative Urine Blood 2+ Abnormal Negative Urine Nitrite Positive Abnormal Negative Urine Bilirubin Negative Negative Urine Glucose Negative Negative Urine White Blood Cell 3+(>20/hpf) Abnormal Absent Urine Red Blood Cell 3+(>10/hpf) Abnormal Absent Urine Bacteria 1+ Abnormal Absent Urine Hyaline Casts Present Abnormal Absent Comp Metabolic 02/16/2019 [facility] Sodium 136 mmol/L Normal 135-[address] [place] [address] [phone] Chloride 109 mmol/L Normal 101-111 Co2 Carbon Dioxide 17 mmol/L Low 22-32 Glucose 100 mg/dL Normal 70-100 Blood Urea Nitrogen 69 mg/dL High 6-24 Creatinine 1.91 mg/dL High 0.51-0.95 BUN/Creatinine Ratio 36.1 High 8-20 Calcium 10.0 mg/dL Normal 8.6-10.3 Total Protein 6.9 g/dL Normal 6.4-8.9 Albumin 4.1 g/dL Normal 3.2-5.2 Globulin 2.8 g/dL Normal 2-4 Albumin/Globulin Ratio 1.5 Normal 1-3 Total Bilirubin 0.60 mg/dL Normal 0.2-1.0 Alkaline Phosphatase 90 U/L Normal 34-104 Alt 58 U/L High 7-52 Ast 64 U/L High 13-39 Egfr Non- 26.2 >60 Egfr 31.7 >60 4 Potassium 5.5 mmol/L High 3.5-5.0 Anion Gap 10 mmol/L Normal 2-11 Type & Screen 02/16/2019 [facility] Patient Blood Type A Positive [address] [place] [address] [phone] Antibody Screen NEGATIVE Urine Culture And 02/16/2019 [facility] Urine Culture SEE RESULT [address] [place] [address] [phone] Order 02/08/2019 Investment Sales Assistant In-House EKG printed Order 02/01/2019 Investment Sales Assistant In-House EKG <pending> 1 AA 03/01 2 Standard intensity warfarin therapeutic range: 2.0-3.0 High intensity warfarin therapeutic range: 2.5-3.5 3 AA 03/01 4 Because ethnic data is not always readily available, this report includes an eGFR for both -Americans and non- Americans. The National Kidney Disease Education Program (NKDEP) does not endorse the use of the MDRD equation for patients that are not between the ages of 18 and 70, are , have extremes of body size, muscle mass, or nutritional status, or are non- or non-. According to the National Kidney Foundation, irrespective of diagnosis, the stage of the disease is based on the level of kidney function: Stage Description GFR(mL/min/1.73 m(2)) 1 Kidney damage with normal or decreased GFR 90 2 Kidney damage with mild decrease in GFR 60-89 3 Moderate decrease in GFR 30-59 4 Severe decrease in GFR 15-29 5 Kidney failure <15 (or dialysis) 5 SEE RESULT BELOW Name: POOJA ARENAS : [address]: Dominique Garcias MD Acct: [id number] Unit: [id number] AGE: 68 Location: [facility] Re02/16/19 SEX: F Status: REG REF SPEC: [id number] DERRICK: 02/16/19-[address]: Dominique Garcias MD REQ: [id number] RECD: 02/16/19 STATUS: COMP _ SOURCE: URINE [facility]: ORDERED: Urine Culture COMMENTS: SHAE 03/01 QUERIES: Urine Source: Clean Catch Procedure Result Reported Site Urine Culture Final 02/18/19- 1019 ML Organism 1 ESCHERICHIA COLI [place] Count >100,000 (Many) CFU/ML 1. ESCHERICHIA COLI M.I.C. RX --------- ------ Ampicillin 4 S Cefazolin <=4 S Cefepime <=1 S Ceftriaxone <=1 S Ciprofloxacin <=0.25 S Gentamicin <=1 S Levofloxacin <=0.12 S Meropenem <=0.25 S Nitrofurantoin <=16 S Tetracycline 2 S Pipercillin/Tazobactam <=4 S Trimethoprim/Sulfamethoxazole <=20 S Amoxicillin/Clavulanic Acid 4 S Aztreonam <=1 S Contact the Microbiology Department for any additional antibiotic reporting. * [facility] - Main Lab . END OF REPORT DEPARTMENT OF PATHOLOGY, [address] [place] [address] Jaime Keen M.D. Director [facility] # [id number] Procedures Date Code Description Status 02/14/2019 26043 EKG Tracing & Interpretation Completed 02/08/2019 77305 EKG Tracing & Interpretation Completed 02/01/2019 28149 EKG Tracing & Interpretation Completed 01/31/2019 27187 Stress Test Completed 01/31/2019 06893 Myocardial Perfusion Imaging Tomographic (Spect) Multiple Completed Studies 01/23/2019 11766 ECHO Transthoracic, Real-Time 2D With Doppler And Color Completed Flow 01/23/2019 39093 ECHO Transthoracic, Real-Time 2D With Doppler And Color Completed Flow 01/19/2019 55088 EKG Tracing & Interpretation Completed Medical Devices Description No Information Available Encounters Type Date Location Provider Dx Diagnosis Office Visit 02/14/2019 [facility] Mary Wade, I48.2 Chronic atrial 11:30a N.P. fibrillation Z01.810 Encounter for preprocedural cardiovascular examination R06.02 Shortness of breath R94.31 Abnormal electrocardiogram [ECG] [EKG] I36.1 Nonrheumatic tricuspid (valve) insufficiency M16.11 Unilateral primary osteoarthritis, right hip Z72.0 Tobacco use Office Visit 02/01/2019 9:40a Investment Sales Assistant Internal Marichuy Mccormick I48.3 Typical atrial Medicine - Suite DO flutter R I48.2 Chronic atrial fibrillation R94.31 Abnormal electrocardiogram [ECG] [EKG] Office Visit 01/19/2019 [place] Tracy Larson, M16.11 Unilateral primary 9:40a [facility] osteoarthritis, Investment Sales Assistant AT [facility] right hip Z01.810 Encounter for preprocedural cardiovascular examination I48.2 Chronic atrial fibrillation I10 Essential (primary) hypertension R06.02 Shortness of breath Z82.49 Family hx of ischem heart dis and oth dis of the circ sys Office Visit 01/15/2019 2:00p [facility] Dominique Garcias, M25.551 Pain in right [facility] M.D. hip M16.11 Unilateral primary osteoarthritis, right hip Assessments Date Code Description Provider 02/19/2019 N39.0 Urinary tract infection, site not Marichuy Mccormick DO specified 02/19/2019 N17.9 Acute kidney failure, unspecified Marichuy Anny, DO 02/19/2019 E87.5 Hyperkalemia Marichuy Anny, DO 02/19/2019 I48.3 Typical atrial flutter Marichuyhay Mccormick, DO 02/19/2019 I10 Essential (primary) hypertension Mairchuy Anny, DO 02/19/2019 M25.551 Pain in right hip Marichuyhay Mccormick, DO 02/19/2019 B18.2 Chronic viral hepatitis C Marichuy Mccormick, DO 02/16/2019 I48.2 Chronic atrial fibrillation Dominique Garcias M.D. 02/16/2019 M25.551 Pain in right hip Dominique Garcias M.D. 02/16/2019 M16.11 Unilateral primary osteoarthritis, right Dominique Garcias M.D. hip 02/14/2019 R94.31 Abnormal electrocardiogram [ECG] [EKG] Mike Arvizu, DO [facility] 02/14/2019 I48.2 Chronic atrial fibrillation Mary Wade, N.P. 02/14/2019 Z01.810 Encounter for preprocedural Mary Wade, N.P. cardiovascular examination 02/14/2019 R06.02 Shortness of breath Mary Wade, N.P. 02/14/2019 R94.31 Abnormal electrocardiogram [ECG] [EKG] Mary Wade, N.P. 02/14/2019 I36.1 Nonrheumatic tricuspid (valve) Mary Wade N.P. insufficiency 02/14/2019 M16.11 Unilateral primary osteoarthritis, right Mary Wade, N.P. hip 02/14/2019 Z72.0 Tobacco use Mary Wade, N.P. 02/08/2019 I48.3 Typical atrial flutter Jp Joyner MD 02/08/2019 I48.2 Chronic atrial fibrillation Jp Joyner MD 02/01/2019 I48.3 Typical atrial flutter Marichuy Mccormick, DO 02/01/2019 I48.2 Chronic atrial fibrillation Marichuy Mccormick, DO 02/01/2019 R94.31 Abnormal electrocardiogram [ECG] [EKG] Marichuy Mccormick, DO 01/31/2019 R06.02 Shortness of breath Mike Arvizu DO FAC 01/31/2019 R06.02 Shortness of breath Tracy Larson M.D. 01/31/2019 Z01.810 Encounter for preprocedural Tracy Larson M.D. cardiovascular examination 01/31/2019 I48.2 Chronic atrial fibrillation Tracy Larson M.D. 01/23/2019 I48.2 Chronic atrial fibrillation Tracy Larson M.D. 01/23/2019 I48.2 Chronic atrial fibrillation Ica ECHO Schedule 01/19/2019 M16.11 Unilateral primary osteoarthritis, right Tracy Larson M.D. hip 01/19/2019 Z01.810 Encounter for preprocedural Tracy Larson M.D. cardiovascular examination 01/19/2019 I48.2 Chronic atrial fibrillation Tracy Larson M.D. 01/19/2019 I10 Essential (primary) hypertension Tracy Larson M.D. 01/19/2019 R06.02 Shortness of breath Tracy Larson M.D. 01/19/2019 Z82.49 Family history of ischemic heart disease Tracy Larson M.D. and other diseases 01/15/2019 M25.551 Pain in right hip Dominique Garcias M.D. 01/15/2019 M16.11 Unilateral primary osteoarthritis, right Dominique Garcias M.D. hip Plan of Treatment Future Appointment(s):03/22/2019 1:00 pm - Marichuy Mccormick DO at [facility] Internal Medicine - [address]/17/2018 3:20 pm - Tracy Larson M.D. at [place] [facility]02/16/2019 - Dominique Garcias M.D.I48.2 Chronic atrial fibrillationFollow up: Follow up: 13-15 days pxsqgdJ87.551 Pain in right hipNew Medication:Oxycodone- Acetaminophen 5-325 mg - 1-2 tabs by mouth every 8 hours as needed for painM16.11 Unilateral primary osteoarthritis, right hip Functional Status Description No Information Available Mental Status Description No Information Available Referrals Refer to Dr Reason for Referral Status Appt Date Saul Lazaro MD, [facility] - preop eval for gina Sent [address] [place] [address] [phone] Itzel aPge M.D. Patient request PCP, Dr Garcias would like her to Sent see you if you are excepting new patients. [address] [place] [place] [address] [place] [address] [phone]
--- OUTSIDE RECORDS SUMMARY | 2019-03-20 11:31 | XMS REPORT | Continuity of Care Document ---
:1950 External Reference #:[id number] Author Name Marichuy Mccormick DO (transmitted by agent of provider Tayler Morgan) Address [address] [place] [address] Care Team Providers Name Role Phone Dominique Garcias M.D. - Adult Care Team Information Bakery Sales Clerk [phone] Reconstructive Orthopaedic Surgery Marichuy Mccormick DO - Hospitalist Care Team Information Bakery Sales Clerk [phone] Problems Active Problems Provider Date Localized, primary [...] Inj, Regadenoson, 0.1 MG Mike Arvizu DO [facility] 01/31/2019 Injection Technetium TC 99M Mike Arvizu DO [facility] 01/31/2019 Tetrofosmin, Per Unit Dose Up To 40 Millicuries Injection Technetium TC 99M Mike Arvizu DO [facility] 01/31/2019 Tetrofosmin, Per Unit Dose [...] Result H/L Range Note CBC Auto 02/16/2019 [facility] White Blood 9.0 10^3/uL Normal 3.5-10.[address] [place] [address] [phone] Red Blood Count 4.95 10^6/uL High 3.70-4.87 [...] Red Blood Cells % 0.1 Inr/Protime 02/16/2019 [facility] Inr 0.91 Normal 0.82-1.[address] [place] [address] [phone] Laboratory test 02/16/2019 [facility] Partial 35.9 Normal 26.0 -38.[address] [place] [address] Time PTT [phone] Urinalysis 02/16/2019 [facility] Urine Color Yellow Profile [address] [place] [address] [phone] Urine Appearance Turbid Urine Specific [place] 1.013 Normal 1.010-1.030 Urine pH 5.0 Normal [...] Casts Present Abnormal Absent Comp Metabolic 02/16/2019 [facility] Sodium 136 mmol/L Normal 135-[address] [place] [address] [phone] Chloride 109 mmol/L Normal 101-111 Co2 Carbon [...] mmol/L Normal 2-11 Type & Screen 02/16/2019 [facility] Patient Blood Type A Positive [address] [place] [address] [phone] Antibody Screen NEGATIVE Urine Culture And 02/16/2019 [facility] Urine Culture SEE RESULT [address] [place] [address] [phone] Order 02/08/2019 Inflated Pad Buffer In-House EKG printed Order 02/01/2019 Inflated Pad Buffer In-House EKG <pending> 1 AA 03/01 2 [...] [address]: Dominique Garcias MD Acct: [id number] Unit: [id number] AGE: 68 Location: [facility] Re02/16/19 SEX: F Status: REG REF SPEC: [id number] DERRICK: 02/16/19-[address]: Dominique Garcias MD REQ: [id number] RECD: 02/16/19 STATUS: COMP _ SOURCE: URINE [facility]: ORDERED: Urine Culture COMMENTS: SHAE 03/01 QUERIES: Urine Source: Clean Catch Procedure Result Reported Site Urine Culture Final 02/18/19- 1019 ML Organism 1 ESCHERICHIA COLI [place] Count >100,000 (Many) CFU/ML 1. ESCHERICHIA COLI [...] . END OF REPORT DEPARTMENT OF PATHOLOGY, [address] [place] [address] Jaime Keen M.D. Director [facility] # [id number] Procedures Date Code Description Status 02/14/2019 51669 EKG Tracing & Interpretation Completed 02/08/2019 34888 EKG Tracing & Interpretation Completed 02/01/2019 58966 EKG Tracing & Interpretation Completed 01/31/2019 47560 Stress Test Completed 01/31/2019 01224 Myocardial Perfusion Imaging Tomographic (Spect) Multiple Completed Studies 01/23/2019 73607 ECHO Transthoracic, Real-Time 2D With Doppler And Color Completed Flow 01/23/2019 67693 ECHO Transthoracic, Real-Time 2D With Doppler And Color Completed Flow 01/19/2019 46931 EKG Tracing & Interpretation Completed Medical Devices Description No Information Available Encounters Type Date Location Provider Dx Diagnosis Office Visit 02/14/2019 [facility] Mayr Wade, I48.2 Chronic atrial 11:30a N.P. fibrillation Z01.810 Encounter for preprocedural cardiovascular examination R06.02 Shortness of breath R94.31 Abnormal electrocardiogram [ECG] [EKG] I36.1 Nonrheumatic tricuspid (valve) insufficiency M16.11 Unilateral primary osteoarthritis, right hip Z72.0 Tobacco use Office Visit 02/01/2019 9:40a Inflated Pad Buffer Internal Marichuy Mccormick I48.3 Typical atrial Medicine - Suite DO flutter R I48.2 Chronic atrial fibrillation R94.31 Abnormal electrocardiogram [ECG] [EKG] Office Visit 01/19/2019 [place] Tracy Larson, M16.11 Unilateral primary 9:40a [facility] osteoarthritis, Inflated Pad Buffer [place] [facility] right hip Z01.810 Encounter for preprocedural cardiovascular [...] 02/19/2019 N17.9 Acute kidney failure, unspecified Marichuy Binhner, DO 02/19/2019 I48.3 Typical atrial flutter Marichuy Sencaesar, DO 02/19/2019 I10 Essential (primary) hypertension Marichuy Binhner, DO 02/19/2019 M25.551 Pain in right hip Marichuy Anny, DO 02/19/2019 B18.2 Chronic viral hepatitis C Marichuy Anny, DO 02/16/2019 I48.2 Chronic atrial fibrillation Dominique Garcias M.D. 02/16/2019 M25.551 Pain in right hip Dominique Garcias M.D. 02/16/2019 M16.11 Unilateral primary osteoarthritis, right Dominique Garcias M.D. hip 02/14/2019 R94.31 Abnormal electrocardiogram [ECG] [EKG] Mike Arvizu, DO [facility] 02/14/2019 I48.2 Chronic atrial fibrillation Mary Wade, N.P. 02/14/2019 Z01.810 Encounter for preprocedural Mary Wade, N.P. cardiovascular examination 02/14/2019 R06.02 Shortness of breath Mary Wade, N.P. 02/14/2019 R94.31 Abnormal electrocardiogram [ECG] [EKG] Mary Wade, N.P. 02/14/2019 I36.1 Nonrheumatic tricuspid (valve) Mary Wade, N.P. insufficiency 02/14/2019 M16.11 Unilateral primary osteoarthritis, [...] DO 01/31/2019 R06.02 Shortness of breath Mike Arvizu, DO [facility] 01/31/2019 R06.02 Shortness of breath Tracy Larson [...] 1:00 pm - Marichuy Mccormick DO at [facility] Internal Medicine - [address]/20/2019 4:00 pm - DEREK Capone at [facility]03/06/2019 1:30 pm - DEREK Capone at [facility]05/17/2019 3:20 pm - Tracy Larson M.D. at [place] [facility]02/20/2019 4:00 pm - DEREK Ambriz at [facility]02/20/2019 4:00 pm - Dominique Garcias M.D. at [facility]02/19/2019 - CORNELIA Vences39.0 Urinary tract infection, site not specifiedNew Medication:Augmentin 875-125 mg - 1 tab by mouth twice a dayN17.9 Acute kidney failure, unspecifiedComments:hold the lisinopril and spironolactone for 3 daysno potassium get your BMP checked on ZQBUJEFJT59.3 Typical atrial vttlabfH83 Essential (primary) dnubucrkpmrbZ18.551 Pain in right hipB18.2 Chronic viral hepatitis C Functional Status Description No Information Available Mental Status Description No Information Available Referrals Refer to Dr Reason for Referral Status Appt Date Saul Lazaro MD, FACC, [facility] afib hx - preop eval for gina Sent [address] [place] [address] [phone] Itzel Page M.D. Patient request PCP, Dr Garcias would like her to Sent see you if you are excepting new patients. [address] [place] [address] [place] [address] [phone]
[2019-03-20] MEDS ORDERED: Buffered Lidocaine 1% SYRIN* 1 ML/SYRINGE INTRADERM ONE (12:07)
[2019-03-20] MEDS ORDERED: ceFAZolin 2 GM in NS PREMIX(*) 2 GM/100 ML BAG IVPB ONE (12:07)
[2019-03-20] MEDS ORDERED: Famotidine IV* 10 MG/ML 2 ML (20 mg) ONE (12:07)
[2019-03-20 12:26] LABS: Urine Appearance Clear; Urine Bilirubin Negative (Negative); Urine Blood Negative (Negative); Urine Color Yellow; Urine Glucose Negative (Negative); Urine Ketones Negative (Negative); Urine Nitrite Negative (Negative); Urine Protein Negative (Negative); Urine Specific Gravity 1.016 (1.010-1.030); Urine Urobilinogen Negative (Negative)
[2019-03-20] MEDS ORDERED: KETAMINE HCL* 50 MG/ML 10 ML VIAL ONE (13:40)
[2019-03-20] MEDS ORDERED: Lidocaine 2% PF * 5 ML VIAL ONE (14:26)
[2019-03-20] MEDS ORDERED: Propofol* 10 MG/ML 20 ML BTL ONE ×2 (14:26→15:11)
[2019-03-20] MEDS ORDERED: Phenylephrine 10 MG/ML VIAL* 1 ML VIAL ONE (14:26)
[2019-03-20] MEDS ORDERED: Ketorolac INJ* 30 MG/ML 1 ML VIAL ONE (14:26)
[2019-03-20] MEDS ORDERED: EPHEDrine (Pressors)* 50 MG/ML VIAL ONE (14:26)
[2019-03-20] MEDS ORDERED: Ondansetron INJ* 2 MG/ML VIAL ONE (14:26)
[2019-03-20] MEDS ORDERED: oxyCODONE TAB* 5 MG TAB PO PRN (15:08)
[2019-03-20] MEDS ORDERED: Acetaminophen IV 1GM/100ML * 1,000 MG/100 ML VIAL IVPB ONE (15:08)
[2019-03-20] MEDS ORDERED: Naloxone* 0.4 MG/ML 1 ML VIAL IV PRN (15:08)
[2019-03-20] MEDS ORDERED: DiMENhydriNATE IV* 50 MG/ML VIAL IV PUSH PRN (15:08)
[2019-03-20] MEDS ORDERED: Bupivacaine 0.5%* 50 ML MDV VIAL ONE (15:46)
[2019-03-20] MEDS ORDERED: Ondansetron INJ* 2 MG/ML VIAL IV PRN (16:22)
[2019-03-20] MEDS ORDERED: oxyCODONE/Acetamin 5/325 MG* TAB PO PRN ×2 (16:22)
[2019-03-20] MEDS ORDERED: Polyethylene Glycol 3350* 17 GM PACKET PO PRN (16:22)
[2019-03-20] MEDS ORDERED: Magnesium Hydroxide LIQ* 30 ML UDC PO PRN (16:22)
[2019-03-20] MEDS ORDERED: Cyclobenzaprine TAB* 10 MG PO PRN (16:22)
[2019-03-20] MEDS ORDERED: Temazepam CAP* 15 MG PO PRN (16:22)
[2019-03-20] MEDS ORDERED: Ondansetron ODT TAB* 4 MG PO PRN (16:22)
[2019-03-20] MEDS ORDERED: diPHENhydraMINE IV* 50 MG/ML 1 ml VIAL (BENADRYL) IV PRN (16:22)
[2019-03-20] MEDS ORDERED: diPHENhydraMINE PO* 25 MG PO PRN (16:22)
[2019-03-20] MEDS ORDERED: traZODone TAB* 50 MG TAB PO PRN (16:29)
[2019-03-20] MEDS ORDERED: Acetaminophen IV 1GM/100ML * 100 ML ONE (17:07)
[2019-03-20] MEDS ORDERED: HYDROmorphone INJ1* 1 MG/ML SYRINGE ONE (17:07)
[2019-03-20] MEDS: HYDROmorphone INJ1* 1 MG/ML SYRINGE IV PRN ×5 (17:12→17:41)
[2019-03-20] MEDS: Lactated Ringers 1000 ML Bag* 1,000 ML IV SCH (18:30)
--- NOTE | 2019-03-20 20:04 | CONS ---
CC: Dr. Marichuy Mccormick; Dr. Dominique Garcias * HOSPITAL MEDICINE CONSULTATION: DATE OF CONSULT: 03/20/19 PRIMARY CARE PHYSICIAN: Dr. Marichuy Mccormick. REQUESTING PHYSICIAN ON CONSULT: Dr. Dominique Garcias. ATTENDING PHYSICIAN: Dr. Rachell Oliver. REASON FOR CONSULT: Co-medical management. HISTORY OF PRESENT ILLNESS: Ms. Judd is a 68-year-old female with past medical history of atrial fibrillation, hypertension, COPD, and hepatitis C, who presents to [facility] today for an elective right total hip arthroplasty. Please see the history and physical by TAJ Velasquez for complete details. In short, the patient has had progressing right hip pain due to osteoarthritis and has failed conservative treatment. She elected to proceed with a right total hip arthroplasty with Dr. Garcias. She underwent surgery today and is in the PACU on my exam. She does have a history of atrial fibrillation, for which she has had some complications recently including 2 episodes of rapid ventricular response. During the most recent, she was started on digoxin and has not had any episodes of tachycardia since that time. She is able to feel when she is in rapid ventricular response. She was also recently taken off from antihypertensive agents and blood pressure has been well controlled since that time. Of note, the patient was started on Keflex on 03/16/19 because of a positive urine culture for Klebsiella pneumonia, though colony count was 25,000 to 50,000 and the patient was asymptomatic. She was prescribed a 5-day course. So, at this point has completed approximately 4 days worth. On my exam, the patient reports feeling well. She is gaining some feeling back in her lower extremities and reports 8/10 right hip pain for which she is requesting pain medication. She also reports feeling thirsty, though is otherwise feeling well. She has 3 close friends who are at the bedside and are very involved in her medical care. Because of the patient's comorbidities, the hospitalist service was asked consult. PAST MEDICAL HISTORY: 1. Atrial fibrillation. 2. Hypertension. 3. COPD. 4. Hepatitis C. PAST SURGICAL HISTORY: None. HOME MEDICATIONS: 1. Cephalexin 500 mg p.o. b.i.d. x5 days, started on 03/16/19. 2. Digoxin 0.25 mg tab p.o. daily. 3. Furosemide 40 mg p.o. twice weekly (usually Tuesday and Tuesday) 4. Metoprolol succinate 100 mg p.o. b.i.d. 5. Oxycodone 5 mg p.o. q.6 hours p.r.n. pain. 6. Trazodone 50 mg p.o. at bedtime p.r.n. insomnia. ALLERGIES: No known drug allergies. FAMILY HISTORY: The patient's father of an MS in his 60s. She reports that her mother at 99 of natural causes. SOCIAL HISTORY: The patient has been smoking approximately 6 cigarettes per day recently, though states "I quit this morning." She denies any alcohol use or recreational drug use, though she does carry a history of heroin abuse. The patient lives alone and actually is currently living in [place], though is from the [place] area. After her recovery from the surgery, she plans to return to [place], though will then shortly thereafter move back to [place]. The patient's friends, Arnulfo and Luisa, will be her surrogate decision maker in the event she is unable to take her own decisions. REVIEW OF SYSTEMS: An 11-point review of systems was performed and all the pertinent positive and negative findings are in the HPI. All other systems are negative. PHYSICAL EXAM: GENERAL: Ms. Judd is a well-developed, well-nourished, middle age white female, lying in bed, in no acute distress. She appears her stated age. VITAL SIGNS: Temp 97.3, heart rate 57, respiratory rate 16, oxygen saturation 94% on room air, and blood pressure 106/63. HEENT: Head is atraumatic, normocephalic. Visual kyle are grossly intact. Extraocular movements intact. Oral mucous membranes moist. NECK: Thyroid not possible. Trachea at midline. No lymphadenopathy. RESPIRATORY: Symmetrical chest expansion. No chest wall deformities. Lungs clear to auscultation throughout. No rhonchi, wheezes, or rales. CARDIOVASCULAR: Irregular rhythm and bradycardic. S1, S2 present. No murmurs , rubs, or gallops. ABDOMEN: Soft, nontender to palpation. Bowel sounds normoactive throughout. EXTREMITIES: Skin warm and smooth bilaterally. Pedal pulses 2+ NEURO: Awake, alert, and oriented x4. Moves all extremities. SKIN: There is a surgical dressing intact to the right hip. DIAGNOSTIC STUDIES/LAB DATA: The patient had blood work on 03/15/19, which showed white blood count of 8.8, RBC 5.48, hemoglobin 17.8, hematocrit 52, platelets 185. INR 0.87. Sodium 136, chloride 103, carbon dioxide 24, creatinine 1.51, glucose 106. Urinalysis today is unremarkable. ASSESSMENT AND PLAN: Ms. Judd is a 68-year-old female with past medical history of atrial fibrillation, hyperlipidemia, chronic obstructive pulmonary disease, and hepatitis C, who presented to [facility] today for an elective right total hip arthroplasty. Hospital Medicine has been asked to consult for co- medical management for: 1. Right total hip arthroplasty, management per Ortho. 2. Atrial fibrillation. The patient has been reportedly rate controlled since starting digoxin recently in the PACU. Heart rate is jumping between the 40s and 70s, though I suspect that this is simply due to anesthesia wearing off and I am not particularly concerned about bradycardia, though I will place the patient on telemetry for at least 24 hours postoperatively. She is not on anticoagulation due to the cost and this is known by her heel breaster. I will continue her digoxin starting tomorrow morning. I will also be continuing her metoprolol starting tonight, though I have put in hold parameters for heart rate less than 60. 3. Hypertension. The patient is normotensive in the PACU. I will continue furosemide and metoprolol tomorrow. 4. Chronic obstructive pulmonary disease. The patient does report using an albuterol inhaler as needed and this was not listed on her med rec, so I have added that and I will continue that as well. 5. Asymptomatic bacteriuria. As noted above, the patient's most recent urine culture grew only 25 to 50,000 colonies of Klebsiella and she was asymptomatic at that point. So, I do not think that she needs to resume the cephalexin that she was previously taking and I do not see any reason to check any further urinalysis. 6. FEN: The patient does not require any fluid resuscitation or electrolyte repletion. Orthopedics has ordered a progressive diet starting with clears. 7. Code status: The patient will be a full code. 8. DVT prophylaxis: Eliquis per Ortho. TIME SPENT: Approximately 60 minutes was spent on this consultation, greater than half of that time was spent [id number] with the patient and her friends obtaining my history, performing my physical exam, and reviewing the plan of care. This case has been reviewed with my attending, Dr. Oliver, who is in agreement with the plan of care. PRABHU NGUYEN, NEO [id number]/CPS #: [id number] ALFREDO
[2019-03-20] MEDS: oxyCODONE TAB* 5 MG TAB PO PRN (20:09)
[2019-03-20] MEDS ORDERED: Metoprolol Succinate XL TAB* 100 MG PO SCH (21:00)
--- NOTE | 2019-03-20 21:24 | OP ---
Operative Report - Blank - Operative Report Date of Operation: 03/20/19 Note: POOJA ARENAS 1950 Date Of Surgery: 03/20/19 Dominique Garcias MD Quebracho Tanner: Keerthi VANG did help throughout the procedure with preparation of the hip, wound retraction, manipulation of the hip, and wound closure. Anesthesiologist: Keerthi Schrader MD Anesthesia Type: Spinal Preoperative Diagnosis: Right severe degenerative osteoarthritis of the hip Postoperative Diagnosis: As above Procedure Performed: Right Total Hip Arthroplasty Complications: None Specimen: Femoral head and acetabular reamings sent to pathology. Hardware used: This is uncemented [place] total hip arthroplasty hardware for the femur a size 5 accolade II with 127 degree neck femoral component, for the acetabulum a size 52E trident II tritanium multi hole shell with one 20 mm screw , for the insert a size 36E trident X3 polyethylene insert, and for the femoral head a size 36 +0 ceramic biolox V40 femoral head. Brief history/Indication: POOJA ARENAS was known in clinic and had a history of severe right hip pain. She failed conservative treatment with anti- inflammatories, pain pills, intra-articular injections and physical therapy. She elected to undergo right total hip arthroplasty due to continued pain and decreased quality of life. Radiographs showed severe end stage osteoarthritis of the hip with bone on bone contact. Informed consent was obtained from the patient. She understood the risks of surgery included but were not limited to: bleeding, infection, damage to nearby structures, intraoperative fracture, nerve palsy, failure of the hardware, early loosening, stiffness or loss of motion, dislocation, leg length discrepancy, anesthesia complications, stroke, heart attack, blood clot and . She wished to proceed. Intra-Operative findings: Intraoperatively the patient was noted to have severe loss of cartilage of the acetabulum and femoral head. Description of the Procedure: POOJA ARENAS was identified in the preanesthesia unit. Her right hip was marked as the correct operative side. Informed consent was signed and placed in the chart. The patient was taken to the operating room and placed under anesthesia without complication. A valero catheter was placed. The patient was placed on the peg board with all bony prominences well padded. The right lower extremity was prepped and draped in the usual sterile fashion. Preoperative time-out was made to correctly identify the patient, side and site. Appropriate intraoperative antibiotics were given within one hour of incision. A standard posterior incision was made and carried sharply down to the lateral fascia. A new 10 blade was used to make an incision in the fascia in line with the skin incision. A charnley retractor was placed. The piriformis and conjoined tendons were identified and elevated off the posterolateral femur using electrocautery. These were tagged with number 5 Ethibond. Next electrocautery was used to make a posterolateral capsular flap and this was tagged with number 5 Ethibonds. The hip was carefully dislocated. Lesser trochanter to the center of the femoral head was measured at 52 mm. The oscillating saw was used to make the femoral neck cut. The femoral head was carefully removed. The femur was retracted anteriorly and the acetabular retractors were placed. Long-handled knife was used to sharply remove any remaining labrum from the acetabular rim. The acetabulum was sequentially reamed up to a size 52. A bleeding subchondral bone bed was obtained. A trial liner was placed and had excellent fit and stability. A 52E trident II tritanium cup with a 20 mm screw was placed and had excellent stability with appropriate anteversion and abduction angle. A size 36 E poly liner was impacted into the acetabular shell. The liner was checked for stability and was stable. Next attention was turned to preparation of the femoral canal. A canal finder was used to enter the proximal femur. The femoral canal was sequentially broached up to a size 5 femoral broach trial. A trial neck and 36 +0 trial femoral head was chosen. Lesser trochanter to center of the femoral head measurement was satisfactory. The hip was reduced and taken through a range of motion. The hip was stable in all positions with good soft tissue tension and appropriate leg lengths. The hip was dislocated and all trials were removed. The final implant chosen was a accolade II size 5 with 127 degree neck angle. This stem was impacted into the femoral canal without difficulty. The stem was stable with appropriate anteversion. The femoral head chosen was a 36 +0 ceramic head. The head was impacted onto the femoral neck without difficulty. The final lesser trochanter to center of the femoral head measurement was satisfactory. The hip was reduced and taken through a range of motion. The hip was stable in all positions with good soft tissue tension and appropriate leg lengths. The hip was copiously irrigated with sterile saline. The previously tagged capsule and tendons were repaired to the posterolateral femur through two trochanteric drill holes. The lateral fascia layer was closed using number 1 vicryls. The rest of the incision was closed in a layered fashion using 0 and 2-0 vicryls. The skin was closed using 3-0 monocryl suture and Dermabond. Sterile adaptic, 4x4s and paper tape was used to cover the incision. The patients anesthesia was reversed without difficulty. She was taken to the PACU in stable condition. Intended weight-bearing will be as tolerated with posterior hip precautions.
[2019-03-20] MEDS ORDERED: NS 0.9% 1000 ML** 1,000 ML IV ONE (21:45)
[2019-03-20] MEDS: Metoprolol Succinate XL TAB* 100 MG PO SCH (21:57)
[2019-03-20] MEDS: Docusate CAP* 100 MG PO SCH (22:00)
[2019-03-20] MEDS: Magnesium Hydroxide LIQ* 30 ML UDC PO SCH (22:00)
[2019-03-20] MEDS: ceFAZolin 1 GM ADVAN(*) 1 GM in NS 0.9% 50 ML* 50 ML IVPB SCH (23:48)
[2019-03-21] MEDS: Morphine TAB Extended Release (*) 15 MG TAB.ER PO SCH ×3 (00:14→21:16)
[2019-03-21] MEDS: traMADol TAB* 50 MG PO SCH ×4 (00:17→17:49)
[2019-03-21] MEDS: Morphine INJ* 2 MG/ML 1 ML SYRINGE (TWO MG - NEW SYRINGE VERSION) IV PRN ×2 (03:58→08:04)
[2019-03-21 05:39] LABS: Hematocrit 36 % (35-47); Hemoglobin 12.1 g/dL (12.0-16.0); Mean Platelet Volume 9.2 fL (7.4-10.4); Platelet Count 120 10^3/uL (150-450)
[2019-03-21 05:56] LABS: BUN/Creatinine Ratio 20.2 (8-20); Calcium 7.8 mg/dL (8.6-10.3); EGFR African American 54.7 (>60); EGFR Non-African American 45.2 (>60); Potassium 4.3 mmol/L (3.5-5.0)
[2019-03-21] MEDS: ceFAZolin 1 GM ADVAN(*) 1 GM in NS 0.9% 50 ML* 50 ML IVPB SCH ×2 (06:05→15:35)
[2019-03-21] MEDS: Lactated Ringers 1000 ML Bag* 1,000 ML IV SCH ×2 (06:44→18:33)
[2019-03-21] MEDS: Acetaminophen TAB* 325 MG PO SCH ×3 (06:53→22:18)
[2019-03-21] MEDS: oxyCODONE TAB* 5 MG TAB PO PRN ×4 (08:04→21:16)
[2019-03-21] MEDS: Metoprolol Succinate XL TAB* 100 MG PO SCH ×2 (09:59→21:19)
[2019-03-21] MEDS: Apixaban* 2.5 MG TAB PO SCH ×2 (10:04→21:16)
[2019-03-21] MEDS: Docusate CAP* 100 MG PO SCH ×2 (10:04→21:16)
[2019-03-21] MEDS: Vitamin THERAPEUTIC TAB PO SCH (10:05)
[2019-03-21] MEDS: Magnesium Hydroxide LIQ* 30 ML UDC PO SCH ×2 (10:06→21:17)
--- NOTE | 2019-03-21 13:17 | PN ---
Progress Note - Progress Note Date of Service: 03/21/19 SOAP: Subjective: []Pt seen and examined at bedside. She had significant right hip pain overnight , tolerable currently. Denies any chest pain, shortness of breath, dizziness or nausea.She has low urine output and had low BP overnight. Objective: []Gen: appears well, NAD RLE: Right hip dressing CDI, thigh soft, DF/PF intact, DP2+, sensation intact to light touch distally Calves supple and nontender without erythema, edema or palpable cords Assessment: [] POD 1 sp RTH Plan: []WBAT Posterior hip precautions PT/OT eliquis 2.5 mg po BID Remove valero BP is improved Seen by medicine today as well, may need additional fluid bolus Anticipate DC home tomorrow Vital Signs Temp 99 F 03/21/19 11:05 Pulse 80 03/21/19 11:05 Resp 16 03/21/19 12:09 BP 108/66 03/21/19 11:05 Pulse Ox 95 03/21/19 11:05 Intake & Output 03/20/19 03/21/19 03/21/19 18:59 06:59 18:59 Intake Total 2600 1890 120 Output Total 600 Balance 2600 1290 120 Weight 153 lb Intake: IV Fluids 2600 340 LR 2600 340 Oral 1550 120 Output: Urine 300 Valero 300 Laboratory Last Values Hgb 12.1 g/dL (12.0-16.0) 03/21/19 05:19 Hct 36 % (35-47) 03/21/19 05:19 Plt Count 120 10^3/uL (150-450) L 03/21/19 05:19 MPV 9.2 fL (7.4-10.4) 03/21/19 05:19 Sodium 140 mmol/L (135-145) 03/21/19 05:19 Potassium 4.3 mmol/L (3.5-5.0) 03/21/19 05:19 Chloride 110 mmol/L (101-111) 03/21/19 05:19 Carbon Dioxide 25 mmol/L (22-32) 03/21/19 05:19 Anion Gap 5 mmol/L (2-11) 03/21/19 05:19 BUN 24 mg/dL (6-24) 03/21/19 05:19 Creatinine 1.19 mg/dL (0.51-0.95) H 03/21/19 05:19 Est GFR ( Amer) 54.7 (>60) 03/21/19 05:19 Est GFR (Non-Af Amer) 45.2 (>60) 03/21/19 05:19 BUN/Creatinine Ratio 20.2 (8-20) H 03/21/19 05:19 Glucose 125 mg/dL (70-100) H 03/21/19 05:19 Calcium 7.8 mg/dL (8.6-10.3) L 03/21/19 05:19 Urine Color Yellow 03/20/19 11:55 Urine Appearance Clear 03/20/19 11:55 Urine pH 5.0 (5-9) 03/20/19 11:55 Ur Specific [place] 1.016 (1.010-1.030) 03/20/19 11:55 Urine Protein Negative (Negative) 03/20/19 11:55 Urine Ketones Negative (Negative) 03/20/19 11:55 Urine Blood Negative (Negative) 03/20/19 11:55 Urine Nitrate Negative (Negative) 03/20/19 11:55 Urine Bilirubin Negative (Negative) 03/20/19 11:55 Urine Urobilinogen Negative (Negative) 03/20/19 11:55 Ur Leukocyte Esterase Negative (Negative) 03/20/19 11:55 Urine Glucose Negative (Negative) 03/20/19 11:55
--- NOTE | 2019-03-21 15:42 | PN ---
Subjective Date of Service: 03/21/19 Interval History: Ms. Judd is feeling okay today. She is having significant right hip pain - using oxy, Tramadol, and morphine. She thinks some repositioning will also help. She is surprised at how stiff she feels. Denies CP, SOB, N/V. Friends at bedside. Nursing called this morning re soft pressures and bradycardia overnight. Family History: Unchanged from Admission Social History: Unchanged from Admission Past Medical History: Unchanged from Admission Objective Active Medications: Acetaminophen (Tylenol Tab*) 975 mg PO Q8HR [place] Apixaban (Eliquis*) 2.5 mg PO BID [place] Bisacodyl (Dulcolax Supp*) 10 mg PA DAILY PRN CONSTIPATION Cyclobenzaprine HCl (Flexeril Tab*) 10 mg PO Q6H PRN SPASMS Digoxin (Lanoxin Tab*) 0.25 mg PO DAILY@1700 [place] Diphenhydramine HCl (Benadryl Iv*) 25 mg IV Q6H PRN PRURITIS Diphenhydramine HCl (Benadryl Po*) 25 mg PO Q6H PRN PRURITIS Docusate Sodium (Colace Cap*) 100 mg PO BID [place] Furosemide (Lasix Tab*) 40 mg PO TuSa [place] Lactated Ringer's (Lactated Ringers 1000 Ml Bag*) 1,000 mls @ 100 mls/hr IV PER RATE [place] Lactulose (Lactulose*) 30 ml PO BID PRN CONSTIPATION Magnesium Hydroxide (Milk Of Magnesia Liq*) 30 ml PO BID [place] Magnesium Hydroxide (Milk Of Magnesia Liq*) 30 ml PO Q6H PRN CONSTIPATION Metoprolol Succinate (Toprol Xl Tab*) 100 mg PO BID [place] Morphine Sulfate (Morphine Inj (Syringe))*) 2 mg IV Q4H PRN Pain - Unrelieved Morphine Sulfate (Ms Contin(*)) 15 mg PO BID [place] Multivitamins (Theragran Tab*) 1 tab PO DAILY [place] Ondansetron HCl (Zofran Inj*) 4 mg IV Q6H PRN NAUSEA Ondansetron HCl (Zofran Odt Tab*) 4 mg PO Q6H PRN NAUSEA Oxycodone HCl (Roxycodone Tab*) 10 mg PO Q4H PRN Pain - Breakthrough Oxycodone/Acetaminophen (Percocet 5/325 Tab*) 1 tab PO Q4H PRN PAIN - MODERATE Oxycodone/Acetaminophen (Percocet 5/325 Tab*) 2 tab PO Q4H PRN PAIN - SEVERE Polyethylene Glycol/Electrolytes (Miralax*) 17 gm PO DAILY PRN Constipation Temazepam (Restoril Cap*) 15 mg PO BEDTIME PRN INSOMNIA Tramadol HCl (Ultram*) 50 mg PO Q6HR [place] Trazodone HCl (Desyrel Tab*) 50 mg PO BEDTIME PRN SLEEP Vital Signs - 8 hr 03/21/19 03/21/19 03/21/19 07:50 08:04 08:15 Temperature 99.1 F Pulse Rate 66 Respiratory 14 16 16 Rate Blood Pressure 115/59 (mmHg) O2 Sat by Pulse 98 Oximetry 03/21/19 03/21/19 03/21/19 10:05 11:05 12:09 Temperature 99 F Pulse Rate 80 Respiratory 16 16 16 Rate Blood Pressure 108/66 (mmHg) O2 Sat by Pulse 95 Oximetry 03/21/19 15:34 Temperature 98.6 F Pulse Rate 65 Respiratory 18 Rate Blood Pressure 114/57 (mmHg) O2 Sat by Pulse 95 Oximetry Oxygen Devices in Use Now: None Appearance: Middle-aged female laying in bed in NAD Eyes: No Scleral Icterus Ears/Nose/Mouth/Throat: Mucous Membranes Moist Neck: NL Appearance and Movements; NL JVP, Trachea Midline Respiratory: Symmetrical Chest Expansion and Respiratory Effort, Clear to Auscultation Cardiovascular: NL Sounds; No Murmurs; No JVD Abdominal: NL Sounds; No Tenderness; No Distention Neurological: Alert and Oriented x 3 Lines/Tubes/Other Access: Clean, Dry and Intact Peripheral IV Nutrition: Taking PO's Result Diagrams: 03/21/19 05:19 03/21/19 05:19 Assess/Plan/Problems-Billing Assessment: Ms. Judd is a 68 yo F with PMH of afib, HTN, COPD, and hep C; who presented to [facility] on 03/20/19 for an elective right TKA with Dr. Garcias. Hospital Medicine was consulted for co-medical management. - Patient Problems (1) Status post right hip replacement Code(s): Z96.641 - PRESENCE OF RIGHT ARTIFICIAL HIP JOINT Comment: - POD #1 - Management per Ortho (2) Atrial fibrillation Code(s): I48.91 - UNSPECIFIED ATRIAL FIBRILLATION Comment: - Rate controlled with asymptomatic bradycardia overnight - Not on outpatient anticoagulation - Telemetry monitoring - Continue digoxin, metoprolol (3) Hypertension Code(s): I10 - ESSENTIAL (PRIMARY) HYPERTENSION Comment: - Borderline soft pressures today - Continue metoprolol with hold parameters (4) DVT prophylaxis Code(s): Z29.9 - ENCOUNTER FOR PROPHYLACTIC MEASURES, UNSPECIFIED Comment: - Eliquis per Ortho (5) Full code status Code(s): Z78.9 - OTHER SPECIFIED HEALTH STATUS Comment: Status and Disposition: Dispo per Ortho. Thank you for this consultation. We will continue to follow as necessary. Attending: Sandip Muse
[2019-03-21] MEDS ORDERED: Digoxin TAB* 0.25 MG PO SCH (17:00)
[2019-03-21] MEDS ORDERED: NS 0.9% 500 ML* 500 ML IV ONE (23:57)
[2019-03-22] MEDS: traMADol TAB* 50 MG PO SCH ×3 (01:39→12:21)
[2019-03-22] MEDS: Acetaminophen TAB* 325 MG PO SCH ×2 (06:29→12:24)
[2019-03-22 07:06] LABS: Hematocrit 35 % (35-47); Hemoglobin 11.7 g/dL (12.0-16.0); Mean Platelet Volume 9.8 fL (7.4-10.4); Platelet Count 126 10^3/uL (150-450)
[2019-03-22] MEDS: Lactated Ringers 1000 ML Bag* 1,000 ML IV SCH (07:36)
[2019-03-22] MEDS: Morphine TAB Extended Release (*) 15 MG TAB.ER PO SCH (09:20)
[2019-03-22] MEDS: Docusate CAP* 100 MG PO SCH (09:21)
[2019-03-22] MEDS: Magnesium Hydroxide LIQ* 30 ML UDC PO SCH (09:21)
[2019-03-22] MEDS: Apixaban* 2.5 MG TAB PO SCH (09:22)
[2019-03-22] MEDS: Vitamin THERAPEUTIC TAB PO SCH (09:22)
[2019-03-22] MEDS: Metoprolol Succinate XL TAB* 100 MG PO SCH (09:23)
--- NOTE | 2019-03-22 10:17 | PN ---
Progress Note - Progress Note Date of Service: 03/22/19 SOAP: Subjective: [] Pt seen at bedside, she is feeling well today. Her pain is well controlled. Denies CP, SOB, dizziness, nausea. Has had low urine output and soft BPs. Her lasix has been held. Objective: []Gen: appears well, NAD RLE: Right hip dressing changed by Dr Garcias this morning, remains CDI, thigh soft, DF/PF intact, DP2+, sensation intact to light touch distally Calves supple and nontender without erythema, edema or palpable cords Assessment: [] POD 2 sp RTH Plan: []WBAT Posterior hip precautions PT/OT eliquis 2.5 mg po BID Anticipate DC home today. Discussed lasix/ BP/ low urine output with medicine, restart lasix as long as SBP > 100. Vital Signs Temp 98.1 F 03/22/19 07:33 Pulse 85 03/22/19 07:33 Resp 18 03/22/19 09:20 BP 98/59 03/22/19 07:33 Pulse Ox 92 03/22/19 07:33 Intake & Output 03/21/19 03/22/19 03/22/19 18:59 06:59 18:59 Intake Total 104 686 3666 Output Total 200 150 Balance -80 250 1220 Intake: IV Fluids 980 LR 980 Oral 120 400 240 Output: Urine 0 150 King 200 Other: # Bowel Movements 0 Laboratory Last Values Hgb 11.7 g/dL (12.0-16.0) L 03/22/19 06:46 Hct 35 % (35-47) 03/22/19 06:46 Plt Count 126 10^3/uL (150-450) L 03/22/19 06:46 MPV 9.8 fL (7.4-10.4) 03/22/19 06:46 Sodium 140 mmol/L (135-145) 03/21/19 05:19 Potassium 4.3 mmol/L (3.5-5.0) 03/21/19 05:19 Chloride 110 mmol/L (101-111) 03/21/19 05:19 Carbon Dioxide 25 mmol/L (22-32) 03/21/19 05:19 Anion Gap 5 mmol/L (2-11) 03/21/19 05:19 BUN 24 mg/dL (6-24) 03/21/19 05:19 Creatinine 1.19 mg/dL (0.51-0.95) H 03/21/19 05:19 Est GFR ( Amer) 54.7 (>60) 03/21/19 05:19 Est GFR (Non-Af Amer) 45.2 (>60) 03/21/19 05:19 BUN/Creatinine Ratio 20.2 (8-20) H 03/21/19 05:19 Glucose 125 mg/dL (70-100) H 03/21/19 05:19 Calcium 7.8 mg/dL (8.6-10.3) L 03/21/19 05:19 Urine Color Yellow 03/20/19 11:55 Urine Appearance Clear 03/20/19 11:55 Urine pH 5.0 (5-9) 03/20/19 11:55 Ur Specific [place] 1.016 (1.010-1.030) 03/20/19 11:55 Urine Protein Negative (Negative) 03/20/19 11:55 Urine Ketones Negative (Negative) 03/20/19 11:55 Urine Blood Negative (Negative) 03/20/19 11:55 Urine Nitrate Negative (Negative) 03/20/19 11:55 Urine Bilirubin Negative (Negative) 03/20/19 11:55 Urine Urobilinogen Negative (Negative) 03/20/19 11:55 Ur Leukocyte Esterase Negative (Negative) 03/20/19 11:55 Urine Glucose Negative (Negative) 03/20/19 11:55
[2019-03-22] MEDS ORDERED: Furosemide TAB* 40 MG PO ONE (10:35)
--- NOTE | 2019-03-22 10:44 | DS ---
Orthopedic Discharge Summary - Discharge Summary Date of Admission:03/20/19 Date of Discharge: 03/22/19 Date of Surgery: 03/20/19 Attending Orthopedic Provider: Dr Garcias Pre-operative Diagnosis: right hip osteoarthritis Operative Procedure: right total hip replacement Disposition of Patient: home Condition of Patient: stable History: POOJA ARENAS is a 68 year old F with years of increasingly severe right hip pain. Patient has failed conservative management and has elected to undergo a [facility] total hip replacement Hospital Course: POOJA was admitted to [facility] on 03/20/19. Patient underwent a right total hip replacement without complication followed by a brief recovery in PACU and transfer to the Short Stay Surgical Unit in stable condition. Our hospitalist service, physical therapy and occupational therapy also participated in this patients care. Post-op day 1: patient was alert and in no acute distress. Dressing was clean, dry and intact. Operative extremity dorsiflexion and plantarflexion intact, sensation intact to light touch distally, DP2+. Post-op day two: dressing was changed, incision was clean , dry and intact. Patient was deemed to be medically and orthopedically stable for discharge. Patient was making little urine during her stay, she was not retaining urine. She takes lasix twice weekly and has not had it since 03/18. Discussed with the hospitalist service with recommendation of giving dose of lasix as long as SBP > 100 manual and may resume home dosing with home nursing checking BP. Physical therapy goals were met. Home Medications Medication Instructions Recorded Confirmed Type Furosemide TAB* [Lasix TAB*] 40 mg PO TUSA 02/01/19 03/20/19 History Metoprolol Succinate XL TAB* 100 mg PO BID 02/01/19 03/20/19 History [Toprol XL TAB*] Digoxin TAB* [Lanoxin TAB*] 0.25 mg PO QAM 02/16/19 03/20/19 History traZODone TAB* [Desyrel TAB*] 50 mg PO BEDTIME PRN 02/16/19 03/20/19 History Cephalexin CAP* [Keflex 500 CAP*] 1 tab PO BID 03/19/19 03/20/19 History Albuterol HFA INHALER* [Ventolin 1 puff INH Q4H PRN 03/20/19 03/20/19 History HFA Inhaler*] Apixaban* [Eliquis*] 2.5 mg PO BID #60 tab 03/21/19 Rx Acetaminophen TAB* [Tylenol TAB*] 975 mg PO Q8HR tab 03/22/19 Rx Docusate CAP* [Colace Cap*] 100 mg PO BID PRN #90 cap 03/22/19 Rx Morphine TAB Extended Rel(*) [Ms 15 mg PO BID #6 tab.er MDD 2 03/22/19 Rx Contin(*)] oxyCODONE TAB* [Roxycodone TAB 5 10 mg PO Q4H PRN #70 tab MDD 10 03/22/19 Rx mg*] RX: [facility] Discharge Instructions following Orthopedic Surgery: Activity: * Weight Bearing as tolerated * Continue physical therapy and occupational therapy exercises as shown * Home PT Visiting nurse to monitor BP. If you continue to make little urine please follow up with your PCP Resume your home medications, last dose of lasix was given 03/22 please resume twice a week dosing, next dose in 3 days. Hip replacements: Continue Hip Precautions- do not cross legs or bend greater than 90 degrees/squat Wound care: * OK to shower on post-op day 3, no bathing, swimming, or submerging wound. * Use gentle soap, pat dry. Cover with gauze, GEORGE wrap or tape. * Visiting home nurse to do wound checks. Call Orthopedic office for: * Increased drainage * Redness * Increased pain * Fever Go to ER with shortness of breath or chest pain. Diet: * Regular diet * Increase fluids and fiber to prevent constipation. * Continue to use stool softeners, call office if no bowel motion within 48 hours. Medications See Home Medication List in your packet for medications that you should take after discharge. DVT Prophylaxis: Eliquis Dosin.5 mg, 1 tab every 12 hours x 30 days. Increases bleeding tendency Pain Control: oxycodone Dosin mg 1-2 tabs by mouth every 4-6 hours as needed for pain. Maximum of 10 tabs per day. Hold for sedation, wean off as soon as pain allows Ms Contin 15 mg 1 tab every 12 hours as needed for moderate pain. Hold for sedation. This is a long acting medication, wean off of this medication first then when able also wean off of oxycodone. Antibiotics are required prior to any dental work. FOLLOW UP: Follow up with [Dieter] Within 10-14 days, call for appointment Please call our office with any questions or concerns ([phone])
[2019-03-22 12:42] VITALS: BP 125/79
[2019-03-22] MEDS ORDERED: Bisacodyl SUPP* 10 MG SUPP PR PRN (16:22)
[2019-03-24] MEDS ORDERED: Furosemide TAB* 40 MG PO SCH (09:00)
== END 2019-03-22 16:30 | disposition home health service (06) | DRG 470 ==
LOC: AA 03-20 11:27 → SSU 03-20 18:47
PROVIDERS: ADMIT Orthopaedic Surgery Adult Reconstructive Orthopaedic Surgery; ATTEND Orthopaedic Surgery Adult Reconstructive Orthopaedic Surgery
PROC: 0SR904A Replacement of Right Hip Joint with Ceramic on Polyethylene Synthetic Substitute, Uncemented, Open Approach (ICD-10-PCS; principal; 2019-03-20 14:00)
DX: M16.11 Unilateral primary osteoarthritis, right hip (principal); I48.91 Unspecified atrial fibrillation; J44.9 Chronic obstructive pulmonary disease, unspecified; F11.21 Opioid dependence, in remission; F17.210 Nicotine dependence, cigarettes, uncomplicated; M25.751 Osteophyte, right hip; E78.5 Hyperlipidemia, unspecified; Z82.49 Family history of ischemic heart disease and other diseases of the circulatory system; Z79.899 Other long term (current) drug therapy; Z79.1 Long term (current) use of non-steroidal anti-inflammatories (NSAID); Z86.19 Personal history of other infectious and parasitic diseases
CPT/HCPCS: 36415; 80048; 81003; 85014; 85018; 85049; 88304; 88311; A9270-GY; C1713; C1776; G8978-GP-CJ; G8979-GP-CI; G8987-GO-CI; G8988-GO-CI; G8989-GO-CI; J0690; J1170; J1885; J2250; J2270; J2405; J2704; J3010; J3490

== ENCOUNTER 2019-09-19 17:07 | Inpatient (IN) | payer MEDICARE ==
--- NOTE | 2019-09-19 17:30 | ED ---
HPI Chest Pain - HPI Summary HPI Summary: 69 year old F presenting to [facility] accompanied by female foreign language interpreter complains of left sided stabbing CP for a few days. Patient reports the pain is only felt when lying down and not when sitting up. Patient denies fever and n/v/d. PMHx of a-fib and hepatitis C. No PMHx of blood clots. FHx of father passing away from GA at 50. SocHx of no recent travel, quitting cigarettes and IV drugs, and no alcohol use.The patient rates the pain 5/10 in severity. Symptoms aggravated by lying down. Symptoms alleviated by sitting up. Medications reviewed. Allergies noted. Home Medications Medication Instructions Recorded Confirmed Type Furosemide TAB* [Lasix TAB*] 40 mg PO TUSA 02/01/19 03/20/19 History Metoprolol Succinate XL TAB* 100 mg PO BID 02/01/19 03/20/19 History [Toprol XL TAB*] Digoxin TAB* [Lanoxin TAB*] 0.25 mg PO QAM 02/16/19 03/20/19 History traZODone TAB* [Desyrel TAB*] 50 mg PO BEDTIME PRN 02/16/19 03/20/19 History Cephalexin CAP* [Keflex 500 CAP*] 1 tab PO BID 03/19/19 03/20/19 History Albuterol HFA INHALER* [Ventolin 1 puff INH Q4H PRN 03/20/19 03/20/19 History HFA Inhaler*] Apixaban* [Eliquis*] 2.5 mg PO BID #60 tab 03/21/19 Rx Acetaminophen TAB* [Tylenol TAB*] 975 mg PO Q8HR tab 03/22/19 Rx Docusate CAP* [Colace Cap*] 100 mg PO BID PRN #90 cap 03/22/19 Rx Morphine TAB Extended Rel(*) [Ms 15 mg PO BID #6 tab.er MDD 2 03/22/19 Rx Contin(*)] oxyCODONE TAB* [Roxycodone TAB 5 10 mg PO Q4H PRN #70 tab MDD 10 03/22/19 Rx mg*] - History of Current Complaint Chief Complaint: EDChestPainROMI Time Seen by Provider: 09/19/19 17:18 Hx Obtained From: Patient Onset/Duration: Started Days Ago, Still Present Pain Intensity: 5 Pain Scale Used: 0-10 Numeric Chest Pain Location: Diffuse - left side Chest Pain Radiates: No Character: Sharp/Stabbing Aggravating Factor(s): Position - lying Alleviating Factor(s): Position - sitting up Associated Signs and Symptoms: Positive: Chest Pain - left sided stabbing pain, Other: - negative - diarrhea. Negative: Fever, Nausea, Vomiting - Additional Pertinent History Primary Care Physician: ROGERS - Allergy/Home Medications Allergies/Adverse Reactions: Allergies Allergy/AdvReac Type Severity Reaction Status Date / Time No Known Allergies Allergy Verified 03/20/19 12:16 Home Medications: Home Medications Digoxin TAB* [Lanoxin TAB*] 0.25 mg PO QPM 09/19/19 [History Confirmed 09/19/19] Metoprolol Succinate XL TAB* [Toprol XL TAB*] 100 mg PO BID 09/19/19 [History Confirmed 09/19/19] Spironolactone TAB* [Aldactone TAB*] 25 mg PO DAILY 09/19/19 [History Confirmed 09/19/19] PMH/Surg Hx/FS Hx/Imm Hx Endocrine/Hematology History: Denies: Hx Diabetes Cardiovascular History: Reports: Hx Atrial Fibrillation, Hx Hypertension, Other Cardiovascular Problems/Disorders - A FIB Respiratory History: Reports: Hx Chronic Obstructive Pulmonary Disease (COPD) GI History: Denies: Other GI Disorders History: Denies: Other Problems/Disorders Musculoskeletal History: Reports: Hx Arthritis - RIGHT HIP Denies: Hx Rheumatoid Arthritis, Hx Osteoporosis Sensory History: Reports: Hx Contacts or Glasses - READING GLASSES Denies: Hx Hearing Aid Opthamlomology History: Reports: Hx Contacts or Glasses - READING GLASSES Neurological History: Denies: Other Neuro Impairments/Disorders - Surgical History Surgery Procedure, Year, and Place: none Hx Anesthesia Reactions: No Infectious Disease History: No Infectious Disease History: Reports: Hx Hepatitis - "-C"PAST DIAGNOSIS- PATIENT STATES NO TREATMENT AND HASN'T COME UP ON BLOOD Denies: Traveled Outside the [place] in Last 30 Days - Family History Known Family History: Positive: Cardiac Disease - father with fatal GA, brother with afib - Social History Alcohol Use: None Hx Substance Use: Yes Substance Use Type: Reports: None Substance Use Comment - Amount & Last Used: 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 (-) Distressed. Sitting comfortably in bed. Skin: Warm, Dry HENT: Normocephalic; Atraumatic Eyes: Conjunctiva normal Neck: Musculoskeletal ROM normal neck. (-) JVD, (-) Stridor, (-) Tracheal deviation Cardio: Rate normal, Heart sounds normal; Intact distal pulses; Radial pulses are 2+ and symmetric. (-) Murmur. Atrial fibrillation on monitor. Pulmonary/Chest wall: Effort normal. (-) Respiratory distress, (-) Wheezes, (-) Rales Abd: Soft, (-) tenderness, (-) Distension, (-) Guarding, (-) Rebound Musculoskeletal: (-) Edema Lymph: (-) Cervical adenopathy Neuro: Alert, Oriented x3 Psych: Mood and affect Normal Triage Information Reviewed: Yes Vital Signs On Initial Exam: Initial Vitals Temp Pulse Resp BP Pulse Ox 97.0 F 85 18 176/105 99 09/19/19 17:18 09/19/19 17:18 09/19/19 17:18 09/19/19 17:18 09/19/19 17:18 Vital Signs Reviewed: Yes Procedures - Sedation Patient Received Moderate/Deep Sedation with Procedure: No Diagnostics - Vital Signs Vital Signs Temp Pulse Resp BP Pulse Ox 09/19/19 17:18 97.0 F 85 18 176/105 99 - Laboratory Result Diagrams: 09/20/19 06:00 09/20/19 06:00 Lab Statement: Any lab studies that have been ordered have been reviewed, and results considered in the medical decision making process. - EKG 171 Cardiac Rate: NL EKG Rhythm: Atrial Fibrillation Summary of EKG Findings: An EKG at 1711 reveals atrial fibrillation at a rate of [address] depression and T wave inversion in V4-V6 which are new compared to prior EKGs. has reviewed and interpreted this EKG. 1715 Cardiac Rate: NL EKG Rhythm: Atrial Fibrillation Summary of EKG Findings: An EKG at 1715 reveals atrial fibrillation at a rate of [address] depression and T wave inversion in V4-V6 which are new compared to prior EKGs. has reviewed and interpreted this EKG. Chest Pain Course/Dx - Course Course Of Treatment: Patient is here with chest pain that only occurs while sitting up. Patient has no chest pain upon arrival. Patient's EKG is concerning as she has new lateral T-wave inversions with some depression compared to prior EKG. Patient is in atrial fibrillation but not RVR. Patient is not hypoxic. Patient blood performed which showed a troponin 0.04 and an elevated d-dimer. Patient was signed out to Dr. Bustamante pending CTA of her chest - Diagnoses Provider Diagnoses: Elevated troponin, Chest pain - Critical Care Time Critical Care Time: 30-74 min - 35 min Discharge ED - Sign-Out/Discharge Documenting (check all that apply): Sign-Out Patient Signing out patient TO: Modesto Bustamante - awating CTA chest - Discharge Plan Condition: Stable Disposition: ADMITTED TO [facility] - Billing Disposition and Condition Condition: STABLE Disposition: Admitted to [facility] - Attestation Statements Document Initiated by Scribe: Yes Documenting Scribe: Braulio Reynoso Provider For Whom Jamie is Documenting (Include Credential): Dr.Keith Radha Waters MD Scribe Attestation: Braulio Kirk scribed for Dr.Keith Radha Waters MD on 09/20/19 at 0700. Scribe Documentation Reviewed: Yes Provider Attestation: The documentation as recorded by the Braulio riggs accurately reflects the service I personally performed and the decisions made by me, Dr.Keith Radha Waters MD Status of Scribe Document: Viewed
[2019-09-19 18:03] LABS: ABS Basophils 0.1 10^3/ul (0-0.2); ABS Lymphocytes 1.6 10^3/ul (1.0-4.8); ABS Monocytes 0.5 10^3/ul (0-0.8); ABS Neutrophils 7.2 10^3/ul (1.5-7.7); Eosinophil % 0.3 %; Hematocrit 54 % (35-47); Hemoglobin 18.6 g/dL (12.0-16.0); Lymphocyte % 16.9 %; Mean Corpuscular HGB Conc 34 g/dL (31-36); Mean Corpuscular Hemoglobin 30 pg (27-31); Mean Corpuscular Volume 87 fL (80-97); Mean Platelet Volume 8.6 fL (7.4-10.4); Nucleated Red Blood Cells % 0.1; Platelet Count 177 10^3/uL (150-450); Red Blood Count 6.24 10^6 /uL (3.70-4.87); Red Cell Distribution Width 17 % (10-15); White Blood Count 9.3 10^3/uL (3.5-10.8)
[2019-09-19 18:05] LABS: Albumin 4.4 g/dL (3.2-5.2); CO2 Carbon Dioxide 18 mmol/L (22-32); Calcium 10.3 mg/dL (8.6-10.3); Chloride 102 mmol/L (101-111); Sodium 134 mmol/L (135-145)
[2019-09-19 18:11] LABS: ALT 30 U/L (7-52); Albumin/Globulin Ratio 1.3 (1-3); Alkaline Phosphatase 98 U/L (34-104); BUN/Creatinine Ratio 23.1 (8-20); Blood Urea Nitrogen 27 mg/dL (6-24); EGFR African American 55.7 (>60); Globulin 3.3 g/dL (2-4); Glucose 108 mg/dL (70-100); Total Protein 7.7 g/dL (6.4-8.9)
[2019-09-19 18:14] LABS: INR 0.97 (0.82-1.09)
[2019-09-19 18:19] LABS: Troponin I 0.04 ng/mL (<0.03)
[2019-09-19] MEDS ORDERED: Iodixanol* (CONTRAST) 320 MG/ML 100 ML SDV IV ONE (18:22)
[2019-09-19 18:31] LABS: AST 37 U/L (13-39); Anion Gap 14 mmol/L (2-11); Potassium 4.7 mmol/L (3.5-5.0)
--- NOTE | 2019-09-19 19:39 | ED ---
Progress - Progress Note Progress Note: 69 y/o F signed out from Dr. Chapin Waters upon shift change 09/19/2019 1900. Awaiting CTA Chest and disposition. Re-Evaluation - Re-Evaluation First Eval Re-Evaluation Time: 20:31 Comment: unable to take CTA Chest. IV dye causing pain in patient's arm per nurse. will order oxycodone Course/Dx - Course Course Of Treatment: The IV placed in right arm infiltrated during imaging per nurse. Unable to obtain CTA Chest. Will admit to the hospitalist for further workup and evaluation. - Diagnoses Provider Diagnoses: Elevated troponin, Chest pain - Provider Notifications Discussed Care Of Patient With: Chance Canseco Time Discussed With Above Provider: 20:33 Discharge ED - Sign-Out/Discharge Documenting (check all that apply): Patient Departure, Receiving Sign-Out Receiving patient FROM: Chapin Waters - Discharge Plan Condition: Fair Disposition: ADMITTED TO [facility] - Billing Disposition and Condition Condition: FAIR Disposition: Admitted to [facility] - Attestation Statements Document Initiated by Moriahibe: Yes Documenting Scribe: Belia Esposito Provider For Whom Chelseye is Documenting (Include Credential): Modesto Bustamante MD Scribe Attestation: IBelia, scribed for Modesto Bustamante MD on 09/21/19 at 0217. Scribe Documentation Reviewed: Yes Provider Attestation: The documentation as recorded by the scribeBelia accurately reflects the service I personally performed and the decisions made by me, Modesto Bustamante MD Status of Scribe Document: Viewed Procedures - Procedure Summary Procedure Summary: Used ultrasound to place peripheral IV in patient's right arm - Sedation Patient Received Moderate/Deep Sedation with Procedure: No
[2019-09-19] MEDS ORDERED: oxyCODONE SR TAB(*) 10 MG TAB.SR PO ONE (20:32)
[2019-09-19] MEDS: Metoprolol Succinate XL TAB* 100 MG PO SCH (23:09)
[2019-09-19] MEDS: Apixaban* 5 MG TAB PO SCH (23:09)
[2019-09-19] MEDS ORDERED: traZODone TAB* 50 MG TAB PO PRN (23:22)
[2019-09-19] MEDS ORDERED: oxyCODONE/Acetamin 5/325 MG* TAB PO ONE (23:22)
[2019-09-20 00:12] LABS: Troponin I 0.03 ng/mL (<0.03)
--- NOTE | 2019-09-20 03:41 | HP ---
CONTINUATION ADDENDUM NOW INCLUDED ON THIS REPORT HISTORY AND PHYSICAL: DATE OF ADMISSION: 09/19/19 HISTORY OF PRESENT ILLNESS: This is a 69-year-old female with past medical history of COPD, hep-C, hypertension, AFib, and current smoker, who presented with complaint of left-sided chest pain for the past few days. The patient stated that pain is rated at about 5/10 in severity and pain is felt only when lying down and not when sitting up. The pain has not radiated to anywhere. It is not referred pain to anywhere. The patient said she has history of AFib and been on Eliquis for over 8 years, but could not afford it again and she stopped for the past 1 year or so, but she knew she needed the Eliquis. She denied cough, fever, nausea, vomiting, or diarrhea. Denied any past medical history of blood clots for DVT. She is a current smoker. States she has cut it down to about 2 to 3 cigarettes a day. PAST MEDICAL HISTORY: As already stated, COPD; hepatitis C which she said was diagnosed about 20 years ago, but she has not had treatment and is looking froward for receiving treatment; hypertension, AFib, current smoker. PAST SURGICAL HISTORY: Right hip arthroplasty. FAMILY HISTORY: Positive for cardiac disease. Father had GA, and brother has a history of AFib. SOCIAL HISTORY: She is a current smoker. Denied alcohol and illicit drug use. 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 CONTINUATION ADDENDUM: HOME MEDICATIONS: 1. Metoprolol succinate 100 mg b.i.d. 2. Digoxin 0.25 mg p.o. daily. 3. Trazodone 50 mg p.o. at bedtime p.r.n. sleep. 4. Albuterol inhaler 1 puff q.4 p.r.n. shortness of breath and wheezing. 5. Eliquis 2.5 mg p.o. b.i.d. The patient had stopped for a couple of months due to insurance issues. 6. Acetaminophen 975 mg p.o. q.8 hours. 7. Colace 100 mg p.o. b.i.d. p.r.n. 8. MS Contin 50 mg p.o. b.i.d. 9. Oxycodone 10 mg p.o. q.4 p.r.n. ALLERGIES: No known drug allergies. FAMILY HISTORY: Dad had GA and CAD. Brother had AFib. SOCIAL HISTORY: She is a current smoker. Smokes 5 to 6 cigarettes per day for the past 50 years. 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 Denied alcohol use and use of illicit drugs. REVIEW OF SYSTEMS: There was no documented fever. There is no significant weight change. There is double vision. There is no ear discharge. She denied having any rhinorrhea. There is no sore throat. No thyroid enlargement. Confirmed having chest pain, left sided and stabbing. Negative vomiting, diarrhea, nausea. Review of 14 systems completed, all others negative. PHYSICAL EXAMINATION CONSTITUTIONAL: Well developed, well nourished, alert, not in any distress, lying comfortably in bed. VITAL SIGNS: Initial vitals, temperature 97.0, pulse 85, respiratory rate 18, BP 176/105, pulse oximetry 99. HEENT: Head: Atraumatic, normocephalic. Eyes: EOMI. Sclerae anicteric. Not pale. Oral mucosa appears to be dry. No oropharyngeal erythema. NECK: Supple with normal range of motion. No JVD, no stridor. No tracheal deviation. PULMONARY: Sore chest wall, mild respiratory distress. No wheeze, no rales. Clear to auscultation bilaterally. CARDIOVASCULAR: Normal breath sounds. S1 and S2 heard. No murmurs, no rubs, no friction. On the monitor, atrial fibrillation. ABDOMEN: Soft, nontender, nondistended. No guarding, no rebound. Bowel sounds normal in all 4 quadrants. MUSCULOSKELETAL: No edema. Moving all 4 extremities with 5/5 strength. SPINE: Scoliosis. NEUROLOGIC: Alert and oriented x3. CN II through CN XII grossly intact. No focal deficits. PSYCHIATRIC: Mood and affect are normal with normal speech. DIAGNOSTIC STUDIES/LAB DATA: Hematology: WBC 9.3, RBC 6.24, hemoglobin 18.6, hematocrit 54, MCV 87, MCH 30, MCHC 34, RDW 17, platelet count 177. Chemistry: Sodium 134, potassium 4.7, chloride 102, carbon dioxide 18, anion gap 14, BUN 27 , creatinine 1.17. Estimated GFR 46.6, BUN/creatinine ratio 23.1, glucose 108, calcium 10.3, total bilirubin 1.20, AST 37, ALT 30, alkaline phosphatase 98. Initial troponin 0.04 at 1741 hours, repeat troponin at 2038 hours 0.02. Repeat troponin again at 2307 hours 0.03. Total protein 7.7, albumin 4.4, globulin 3.3, albumin/globulin ratio 1.3. EKG interpretation: Atrial fibrillation with a rate of 75 to 88. Irregular reactivity. Chest CT canceled, could not get an IV line on the patient, several attempts made even with ultrasound. V/Q scan in the morning and trial of IV line if possible. ASSESSMENT AND PLAN: A 69-year-old female with known history of atrial fibrillation, initially on Eliquis but stopped due to insurance issues, presented with chest pain and elevated D-dimer. CT could not be done because IV line could not be found for contrast. So admitting diagnoses: 1. Chest pain. 2. Elevated D-dimer. 3. Atrial fibrillation 4. Hypertension. 5. Chronic pain syndrome. 6. Current smoker. The patient would be admitted to the medical floor, potline monitor. The patient was started back on Eliquis at 1 dose 2.5 b.i.d., but I started her today on 5 mg b.i.d. with a view to review. V/Q scan was scheduled for tomorrow a.m. I will do an echocardiogram to check for cardiac function. Followup cardiac enzymes. Cardiology consult. Followup a.m. labs. Continue metoprolol if it is rate controlled. Continue digoxin and continue with Eliquis as already stated. For chest pain, monitor cardiac enzymes, pain control, nitro for chest pain, and EKG p.r.n. for chest pain. For hypertension, the patient to continue home meds metoprolol with holding parameters. For chronic pain syndrome, the patient is to continue with narcotics as prescribed, MS Contin and oxycodone as needed. For insomnia, the patient will continue on trazodone 50 mg at bedtime p.r.n. For smoking, the patient counseled on smoking cessation. For chronic obstructive pulmonary disease, the patient is not on exacerbation, stable. Continue with home inhaler as needed. The patient has a history of hepatitis C and we need to . The patient to follow up with primary physician to initiate treatment for chronic hepatitis C. DVT prophylaxis: The patient is currently on Eliquis. Code status: Full code. Fluid and electrolytes: Will be repleted as needed. Diet: Cardiac diet. TIME SPENT: Time spent on this admission was 60 minutes, greater than half of that time was spent [id number] with the patient obtaining my history and physical and the other half of the time was spent going over the plan of care with the patient and implementing the plan of care. Thank you very much for the opportunity to partake in the healthcare needs of this gayatri lady. [id number]/CPS #: [id number] #: [id number]
[2019-09-20 06:20] LABS: ABS Basophils 0.1 10^3/ul (0-0.2); ABS Eosinophils 0.1 10^3/ul (0-0.6); ABS Lymphocytes 2.2 10^3/ul (1.0-4.8); ABS Monocytes 0.5 10^3/ul (0-0.8); ABS Neutrophils 6.3 10^3/ul (1.5-7.7); Eosinophil % 1.5 %; Hematocrit 53 % (35-47); Hemoglobin 18.2 g/dL (12.0-16.0); Lymphocyte % 23.5 %; Mean Corpuscular HGB Conc 34 g/dL (31-36); Mean Corpuscular Hemoglobin 30 pg (27-31); Mean Corpuscular Volume 88 fL (80-97); Mean Platelet Volume 8.9 fL (7.4-10.4); Nucleated Red Blood Cells % 0.4; Platelet Count 180 10^3/uL (150-450); Red Cell Distribution Width 18 % (10-15); White Blood Count 9.2 10^3/uL (3.5-10.8)
[2019-09-20 06:45] LABS: Anion Gap 10 mmol/L (2-11); BUN/Creatinine Ratio 26.1 (8-20); Blood Urea Nitrogen 30 mg/dL (6-24); CO2 Carbon Dioxide 23 mmol/L (22-32); Calcium 9.4 mg/dL (8.6-10.3); Chloride 103 mmol/L (101-111); EGFR African American 56.8 (>60); EGFR Non-African American 46.9 (>60); Glucose 85 mg/dL (70-100); Potassium 4.5 mmol/L (3.5-5.0); Sodium 136 mmol/L (135-145)
[2019-09-20 06:47] LABS: Troponin I 0.03 ng/mL (<0.03)
--- NOTE | 2019-09-20 07:56 | HP ---
HISTORY AND PHYSICAL: ADDENDUM: HOME MEDICATIONS: 1. Metoprolol succinate 100 mg b.i.d. 2. Digoxin 0.25 mg p.o. daily. 3. Trazodone 50 mg p.o. at bedtime p.r.n. sleep. 4. Albuterol inhaler 1 puff q.4 p.r.n. shortness of breath and wheezing. 5. Eliquis 2.5 mg p.o. b.i.d. The patient had stopped for a couple of months due to insurance issues. 6. Acetaminophen 975 mg p.o. q.8 hours. 7. Colace 100 mg p.o. b.i.d. p.r.n. 8. MS Contin 50 mg p.o. b.i.d. 9. Oxycodone 10 mg p.o. q.4 p.r.n. ALLERGIES: No known drug allergies. FAMILY HISTORY: Dad had SD and CAD. Brother had AFib. SOCIAL HISTORY: She is a current smoker. Smokes 5 to 6 cigarettes per day for the past 50 years. 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 Denied alcohol use and use of illicit drugs. REVIEW OF SYSTEMS: There was no documented fever. There is no significant weight change. There is double vision. There is no ear discharge. She denied having any rhinorrhea. There is no sore throat. No thyroid enlargement. Confirmed having chest pain, left sided and stabbing. Negative vomiting, diarrhea, nausea. Review of 14 systems completed, all others negative. PHYSICAL EXAMINATION CONSTITUTIONAL: Well developed, well nourished, alert, not in any distress, lying comfortably in bed. VITAL SIGNS: Initial vitals, temperature 97.0, pulse 85, respiratory rate 18, BP 176/105, pulse oximetry 99. HEENT: Head: Atraumatic, normocephalic. Eyes: EOMI. Sclerae anicteric. Not pale. Oral mucosa appears to be dry. No oropharyngeal erythema. NECK: Supple with normal range of motion. No JVD, no stridor. No tracheal deviation. PULMONARY: Sore chest wall, mild respiratory distress. No wheeze, no rales. Clear to auscultation bilaterally. CARDIOVASCULAR: Normal breath sounds. S1 and S2 heard. No murmurs, no rubs, no friction. On the monitor, atrial fibrillation. ABDOMEN: Soft, nontender, nondistended. No guarding, no rebound. Bowel sounds normal in all 4 quadrants. MUSCULOSKELETAL: No edema. Moving all 4 extremities with 5/5 strength. SPINE: Scoliosis. NEUROLOGIC: Alert and oriented x3. CN II through CN XII grossly intact. No focal deficits. PSYCHIATRIC: Mood and affect are normal with normal speech. DIAGNOSTIC STUDIES/LAB DATA: Hematology: WBC 9.3, RBC 6.24, hemoglobin 18.6, hematocrit 54, MCV 87, MCH 30, MCHC 34, RDW 17, platelet count 177. Chemistry: Sodium 134, potassium 4.7, chloride 102, carbon dioxide 18, anion gap 14, BUN 27 , creatinine 1.17. Estimated GFR 46.6, BUN/creatinine ratio 23.1, glucose 108, calcium 10.3, total bilirubin 1.20, AST 37, ALT 30, alkaline phosphatase 98. Initial troponin 0.04 at 1741 hours, repeat troponin at 2038 hours 0.02. Repeat troponin again at 2307 hours 0.03. Total protein 7.7, albumin 4.4, globulin 3.3, albumin/globulin ratio 1.3. EKG interpretation: Atrial fibrillation with a rate of 75 to 88. Irregular reactivity. Chest CT canceled, could not get an IV line on the patient, several attempts made even with ultrasound. V/Q scan in the morning and trial of IV line if possible. ASSESSMENT AND PLAN: A 69-year-old female with known history of atrial fibrillation, initially on Eliquis but stopped due to insurance issues, presented with chest pain and elevated D-dimer. CT could not be done because IV line could not be found for contrast. So admitting diagnoses: 1. Chest pain. 2. Elevated D-dimer. 3. Atrial fibrillation 4. Hypertension. 5. Chronic pain syndrome. 6. Current smoker. 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 The patient was started back on Eliquis at 1 dose 2.5 b.i.d., but I started her today on 5 mg b.i.d. with a view to review. V/Q scan was scheduled for tomorrow a.m. I will do an echocardiogram to check for cardiac function. Followup cardiac enzymes. Cardiology consult. Followup a.m. labs. Continue metoprolol if it is rate controlled. Continue digoxin and continue with Eliquis as already stated. For chest pain, monitor cardiac enzymes, pain control, nitro for chest pain, and EKG p.r.n. for chest pain. For hypertension, the patient to continue home meds metoprolol with holding parameters. For chronic pain syndrome, the patient is to continue with narcotics as prescribed, MS Contin and oxycodone as needed. For insomnia, the patient will continue on trazodone 50 mg at bedtime p.r.n. For smoking, the patient counseled on smoking cessation. For chronic obstructive pulmonary disease, the patient is not on exacerbation, stable. Continue with home inhaler as needed. The patient has a history of hepatitis C and we need to . The patient to follow up with primary physician to initiate treatment for chronic hepatitis C. DVT prophylaxis: The patient is currently on Eliquis. Code status: Full code. Fluid and electrolytes: Will be repleted as needed. Diet: Cardiac diet. TIME SPENT: Time spent on this admission was 60 minutes, greater than half of that time was spent [id number] with the patient obtaining my history and physical and the other half of the time was spent going over the plan of care with the patient and implementing the plan of care. Thank you very much for the opportunity to partake in the healthcare needs of this gayatri lady. [id number]/[facility] #: [id number] ALFREDO
[2019-09-20] MEDS ORDERED: Spironolactone TAB* 25 MG PO SCH (09:00)
[2019-09-20] MEDS: Apixaban* 5 MG TAB PO SCH (10:07)
[2019-09-20] MEDS: Metoprolol Succinate XL TAB* 100 MG PO SCH (10:07)
[2019-09-20] MEDS ORDERED: oxyCODONE TAB* 5 MG TAB PO PRN (10:12)
--- NOTE | 2019-09-20 11:24 | ECHO ---
*[facility]* [place] [address] Fax #: [phone] Transthoracic Echocardiogram Patient: Joel Judd : 1950 Study Date: 09/20/2019 Age: 69 Gender: F HR: 72 bpm Height: 65 in /165.1 cm BSA: 1.73 m^2 Weight: 144.7 lb /65.8 kg BMI: 24.1 kg/m^2 *Machine Egg Washer: * Berenice Landis RDCS RN *Referring Physician: * Isis WinnReading Physician: * Belkis Hurtado MD Indications: Chest Pain, unspecified. History: Atrial fibrillation. Chronic obstructive pulmonary disease. Hepatitis C. Risk factors: Current tobacco use. Hypertension. Conclusions Summary: - Left ventricle: Systolic function is at the lower limits of normal. The estimated ejection fraction is 50-55%. Left ventricular diastolic function parameters are indeterminate. - Right ventricle: The cavity size is moderately dilated. Systolic function is normal. - Ventricular septum: There is mild septal flattening of the interventricular septum consistent with RV volume or pressure overload. - Left atrium: The atrium is mildly to moderately dilated. - Right atrium: The atrium is moderately to severely dilated. - Atrial septum: The atrial septum appears aneurysmal. - Mitral valve: There is mild regurgitation. - Aortic valve: There is trace regurgitation. - Tricuspid valve: There is severe regurgitation. - Pulmonic valve: There is mild regurgitation. - C/t 01/23/2019, no overt significant changes . Study data: Transthoracic echocardiogram. Procedure: Transthoracic echocardiography was performed. Image quality was fair. The study was technically limited due to COPD and smoking history. The patient refused the use of Definity for image enhancement. Complete 2D, spectral Doppler, and color flow Doppler. Location: Bedside. Patient status: Inpatient. Patient room number: 445-02. Rhythm: Atrial fibrillation. Findings Left ventricle: The cavity size is mildly reduced. Wall thickness is mildly increased. Systolic function is at the lower limits of normal. The estimated ejection fraction is 50-55%. Regional wall motion abnormalities cannot be excluded, as image quality was suboptimal and the patient refused the use of Definity. Left ventricular diastolic function parameters are indeterminate. Right ventricle: The cavity size is moderately dilated. Systolic function is normal. Ventricular septum: There is mild septal flattening of the interventricular septum consistent with RV volume or pressure overload. Left atrium: The atrium is mildly to moderately dilated. Right atrium: The atrium is moderately to severely dilated. Atrial septum: The atrial septum appears aneurysmal. Mitral valve: The leaflets are mildly thickened. There is no evidence of stenosis. There is mild regurgitation. Aortic valve: The valve is trileaflet. The leaflets are mildly thickened. There is no evidence of stenosis. There is trace regurgitation. Tricuspid valve: The leaflets are normal thickness. There is severe regurgitation. Hepatic yvan flow reversal is present by color Doppler. Pulmonic valve: The valve is structurally normal. There is no evidence of stenosis. There is mild regurgitation. Aorta: Aortic root: The aortic root is not dilated. Ascending aorta: The ascending aorta is not visualized. Aortic arch: The aortic arch is not dilated. Pericardium: There is no pericardial effusion. Pulmonary arteries: Not well visualized. Systolic pressure is within the normal range, estimated to be 28 mm Hg. Pulmonary artery pressure may be underestimated Systemic veins: Inferior vena cava: The vessel is normal in size. There is (>= 50%) respiratory change in the IVC dimension. Measurements Left ventricle Value Ref Aortic valve Value Ref LOBITO, LAX (L) 3.0 cm 3.8 - Diana diam, ED 1.8 cm ---- 5.2 Peak v, S 1.68 m/sec ---- ESD, LAX 2.3 cm 2.2 - VTI, S 31.9 cm ---- 3.5 Mean grad, S 7.0 mm Hg ---- FS, LAX (L) 22 % 27 - 45 Peak grad, S 11.0 mm Hg ---- PW, ED (H) 1.0 cm 0.6 - LVOT/AV, VTI ratio 0.39 ---- 0.9 IVS/PW, ED 1.08 -------- Mitral valve Value Ref E', lat diana, TDI 13.1 cm/sec >=10.0 Peak E 0.78 m/sec --- - E/e', lat diana, TDI 6 -------- Decel time 190 ms ---- E', med diana, TDI 10.3 cm/sec >=7.0 Peak grad, D 2.4 mm Hg --- - E/e', med diana, TDI 8 -------- E', avg, TDI 11.7 cm/sec -------- Pulmonic valve Value Ref E/e', avg, TDI 7 <=14 Peak v, S 0.57 m/sec --- - Peak grad, S 1.0 mm Hg ---- LVOT Value Ref Peak shakeel, S 0.72 m/sec -------- Tricuspid valve Value Ref VTI, S 12.4 cm -------- Peak RV-RA grad, S 25 mm Hg ---- Mean grad, S 1 mm Hg -------- Max TR shakeel 2.5 m/sec ---- Ventricular septum Value Ref Aortic root Value Ref IVS, ED (H) 1.1 cm 0.6 - Root diam 2.9 cm <3.9 0.9 Aortic arch Value Ref Right ventricle Value Ref Arch diam 2.8 cm ---- LOBITO, LAX 5.1 cm -------- LOBITO minor ax, A4C (H) 4.6 cm 1.9 - Decending aorta Value Ref mid 3.5 Vidhya peak shakeel 0.52 m/sec ---- Pressure, S 28 mm Hg -------- Pulmonary artery Value Ref Left atrium Value Ref Pressure, S 28.0 mm Hg ---- ML dim, A4C 3.6 cm -------- SI dim, A4C 6.7 cm -------- Inferior vena cava Value Ref Vol/bsa, ES, 1-p 30 ml/m^2 11 - 40 Diam 1.5 cm ---- A4C Vol/bsa, ES, A/L (H) 37 ml/m^2 16 - 34 Right atrium Value Ref ML dim, ES, A4C (H) 5.9 cm 2.6 - 4.4 SI dim, ES, A4C (H) 6.7 cm 3.4 - 5.3 Estimated RAP 3 mm Hg -------- Legend: (L) and (H) alber values outside specified reference range. Prepared and electronically signed by Belkis Hurtado MD 09/20/2019 11:24
[2019-09-20 12:30] VITALS: BP 157/115
[2019-09-20] MEDS ORDERED: Digoxin TAB* 0.25 MG PO SCH (18:00)
--- NOTE | 2019-09-21 00:04 | DS ---
CC: Dr. Marichuy Mccormick * DISCHARGE SUMMARY: DATE OF ADMISSION: 09/19/19 DATE OF DISCHARGE: 09/20/19 PRIMARY CARE PROVIDER: Dr. Marichuy Mccormick. ATTENDING PHYSICIAN: Dr. Tricia Jaquez * (dictated by TAJ Fiore). PRIMARY DIAGNOSIS: Chest pain, elevated troponins, EKG changes concerning for non- ST elevation myocardial infarction. SECONDARY DIAGNOSES: 1. Chronic obstructive pulmonary disease. 2. Hypertension. 3. Atrial fibrillation, not on anticoagulations prior to admission. 4. Hepatitis C, untreated. STUDIES WHILE IN THE HOSPITAL: 1. Chest x-ray, impression: No active cardiopulmonary disease. Moderate COPD. 2. Transthoracic echocardiogram, summary: LV systolic function at lower limits of normal. Estimated EF 50% to 55%. Left ventricular diastolic function parameters are indeterminate. RV cavity size is moderately dilated. Systolic function is normal. Ventricular septum with mild flattening of interventricular septum consistent with RV volume or pressure overload. Left atrium mildly to moderately dilated. Right atrium moderately to severely dilated. Atrial septum appears aneurysmal. Mild MR. Trace AR. Severe TR. Mild MA. Compared to 01/23/19, no overt significant changes. 3. Nuclear medicine V/Q scan, impression: Solitary very small unmatched perfusion defect at the anterior segment of the right upper lobe or lateral segment of the right middle lobe. No additional perfusion defects identified in the right or left lung, very low suspicion for pulmonary embolism. DISCHARGE MEDICATIONS: Home medications: 1. Digoxin 0.25 mg p.o. daily. 2. Metoprolol 100 mg p.o. b.i.d. 3. Spironolactone 25 mg p.o. daily. New home medication: Xarelto. HISTORY OF PRESENT ILLNESS/HOSPITAL COURSE: Ms. Judd is a 69-year-old female with past medical history of COPD; hypertension; AFib, not on anticoagulation; and tobacco abuse, who presented to the ER on 09/19/19 with complaints of left- sided chest pain that was worse when lying down. She has a history of AFib for which she has been on Eliquis for years, but had stopped it 1 year ago as she was unable to afford it. The hospitalist team was asked to evaluate the patient for admission. In the ER, she was noted to have an elevated D-dimer of 755 raising high suspicion for a pulmonary embolism. Her troponins were trended and were variable with a peak of 0.04, but most were elevated. An EKG showed AFib with a rate of 81 with diffuse T-wave inversions and ST depression in V4 to V6, this was concerning for possible NSTEMI. The patient was admitted and echo was obtained and showed a preserved ejection fraction, normal RV systolic function and valvular abnormalities which were unchanged from previous echo dated January 2019. A nuclear medicine V/Q scan was then obtained and showed very low suspicion for pulmonary embolism. It was recommended that the patient remain hospitalized with plans for stress testing. She did have a stress test in January 2019 that was negative for ischemia with normal LV function, low risk with RV hypertrophy. Due to her concerning EKG findings and mildly elevated troponins, again it was recommended that she have a stress test, she adamantly refuses. We discussed the risks of leaving against medical advice, which include possible worsening of cardiac function, possible permanent cardiac damage and may or may not lead to . The patient understands these risks and has still requested to leave against medical advice. Prior to discharge, we discussed restarting anticoagulation to which she is agreeable. She states that she has an order for a prescription for apixaban, but is unable to afford it as her insurance does not cover it. A new prescription was sent to her pharmacy for Xarelto and the patient also received a free 30-day trial of Xarelto from the pharmacy and she will continue to take this medication. She will urgently follow up with her sludge filtration attendant, Dr. Larson and discuss further cardiac workup. Again, the patient is leaving against medical advice and has the capacity to leave against medical advice and make an informed decision and she understands the risks. PHYSICAL EXAMINATION: General: Ms. Judd is a well-developed, well-nourished, average weight, older white female, who is sitting up in bed. She appears to be in no acute distress. She appears somewhat older than her stated age and mildly chronically ill. HEENT: PERRL. EOMI. Nonicteric sclerae. Hearing is grossly intact. Oral mucous membranes are moist. There are no lesions. The pharynx is clear. Tongue is at midline. Cardiovascular: Regular rate and rhythm with S1, S2 present. No murmurs, rubs, clicks, or gallops. There is no JVD, no peripheral edema. Pulmonary: Symmetrical chest expansion. No use of accessory muscles. Clear to auscultation bilaterally. Abdomen: Bowel sounds in all quadrants. Soft, nontender to palpation. Neuro: The patient is awake. She is alert and oriented x3. Cranial nerves are grossly intact. She moves all of her extremities. DISCHARGE PLAN: Ms. Judd will be discharged to home. CONDITION: Fair. DISPOSITION: Discharged to home against medical advice. DIET: Heart healthy. ACTIVITY: As tolerated. MEDICATIONS: Restart Xarelto. EDUCATION: 1. Follow up with Dr. Larson as soon as possible, discuss recent hospitalization, possible need for stress test. 2. Follow up with primary care provider as scheduled. 3. She had decided to leave against medical advice. Please return to the ER or nearest hospital if you experience any return or worsening of symptoms, chest pain or discomfort, shortness of breath, dizziness, lightheadedness, loss of consciousness, high fevers, chills, night sweats, or any other worrisome signs or symptoms. This is a summarized report of a complex medical history and hospital stay. For further details, please see the entire medical record. TIME SPENT: Approximately 35 minutes was spent on this discharge, greater than half that time was spent [id number] with the patient discussing discharge plans and instructions. TAJ WARNER [id number]/[facility] #: [id number] MTDD
== END 2019-09-20 14:55 | disposition left against medical advice (07) | DRG 313 ==
LOC: ED 17:07 → MEDTELE 20:40
PROVIDERS: ADMIT Family Medicine; ATTEND Internal Medicine
DX: R07.9 Chest pain, unspecified (principal); R74.8 Abnormal levels of other serum enzymes; R94.31 Abnormal electrocardiogram [ECG] [EKG]; J44.9 Chronic obstructive pulmonary disease, unspecified; I10 Essential (primary) hypertension; I48.91 Unspecified atrial fibrillation; B19.20 Unspecified viral hepatitis C without hepatic coma; F17.210 Nicotine dependence, cigarettes, uncomplicated; Z96.641 Presence of right artificial hip joint; Z82.49 Family history of ischemic heart disease and other diseases of the circulatory system; Z79.1 Long term (current) use of non-steroidal anti-inflammatories (NSAID); Z79.891 Long term (current) use of opiate analgesic; Z79.899 Other long term (current) drug therapy
CPT/HCPCS: 36415; 71046; 78582; 80048; 80053; 84484; 85025; 85379; 85610; 93005; 93306; 99284; A9270-GY; A9540; A9558

== ENCOUNTER 2021-10-02 07:57 | Inpatient (IN) ==
[2021-10-02] MEDS ORDERED: methylPREDNISolone SOD SUCC 125 mg 2 ML VIAL IV ONE (08:24)
[2021-10-02 08:48] LABS: ABS Basophils 0.1 10^3/ul (0-0.2); ABS Lymphocytes 1.8 10^3/ul (1.0-4.8); ABS Monocytes 0.4 10^3/ul (0-0.8); ABS Neutrophils 5.1 10^3/ul (1.5-7.7); Eosinophil % 0.4 %; Hematocrit 46 % (35-47); Hemoglobin 15.2 g/dL (12.0-16.0); Lymphocyte % 24.1 %; Mean Corpuscular HGB Conc 33 g/dL (31-36); Mean Corpuscular Hemoglobin 30 pg (27-31); Mean Corpuscular Volume 91 fL (80-97); Mean Platelet Volume 8.6 fL (7.4-10.4); Nucleated Red Blood Cells % 0.2; Platelet Count 181 10^3/uL (150-450); Red Blood Count 5.05 10^6 /uL (3.70-4.87); Red Cell Distribution Width 16 % (10-15); White Blood Count 7.3 10^3/uL (3.5-10.8)
[2021-10-02] MEDS ORDERED: oxyCODONE/Acetamin 5/325 mg TAB PO ONE ×2 (09:03→14:40)
[2021-10-02 09:23] LABS: Albumin 4.1 g/dL (3.2-5.2); Albumin/Globulin Ratio 1.5 (1-3); Globulin 2.8 g/dL (2-4); Potassium 3.2 mmol/L (3.5-5.0); Total Bilirubin 0.9 mg/dL (0.2-1.0); Total Protein 6.9 g/dL (6.4-8.9); eGFR CKD-EPI 59.9 (>60)
[2021-10-02] MEDS ORDERED: Potassium Chlor 20 meq TAB.ER PO ONE (10:26)
[2021-10-02] MEDS ORDERED: Albuterol HFA INHALER 8 gm MDI INH ONE (11:53)
[2021-10-02] MEDS ORDERED: Albuterol/Ipratropium NEB.SOL (2.5/0.5 MG) 3 ML NEB.SOLN INH ONE (13:13)
[2021-10-02] MEDS ORDERED: Metoprolol Tartrate 5 mg VIAL 5 ml VIAL (1 mg/ml) IV ONE ×2 (13:43→15:12)
[2021-10-02] MEDS ORDERED: Albuterol/Ipratropium NEB.SOL (2.5/0.5 MG) 3 ML NEB.SOLN INH PRN (15:10)
[2021-10-02] MEDS ORDERED: Albuterol HFA INHALER 8 gm MDI INH PRN (15:11)
[2021-10-02 15:12] LABS: Magnesium 1.9 mg/dL (1.9-2.7)
[2021-10-02] MEDS ORDERED: Metoprolol Tartrate 5 mg VIAL 5 ml VIAL (1 mg/ml) IV PRN ×2 (15:13→16:51)
[2021-10-02] MEDS ORDERED: Furosemide 20 mg/2 ml IV VIAL IV ONE (16:12)
[2021-10-02] MEDS ORDERED: Magnesium Sulfate 2 gm BAG 2 GM/50 ML BAG IVPB ONE (16:18)
[2021-10-02 17:46] LABS: TSH Ultra Thyroid Stim Horm 3.28 mcIU/mL (0.34-5.60)
[2021-10-02] MEDS: Albuterol/Ipratropium NEB.SOL (2.5/0.5 MG) 3 ML NEB.SOLN INH SCH (20:45)
[2021-10-03] MEDS: Albuterol/Ipratropium NEB.SOL (2.5/0.5 MG) 3 ML NEB.SOLN INH SCH ×2 (00:15→08:54)
[2021-10-03 07:48] LABS: Calcium 8.8 mg/dL (8.6-10.3); Magnesium 2.5 mg/dL (1.9-2.7); Potassium 4.4 mmol/L (3.5-5.0); eGFR CKD-EPI 44.2 (>60)
[2021-10-03] MEDS: CMC:FLUTICAS/UMECLI/VILANT 100-62.5-25 MDI (NF) INH SCH (08:56)
[2021-10-03] MEDS: oxyCODONE/Acetamin 5/325 mg TAB PO PRN ×2 (11:16→16:52)
[2021-10-03] MEDS ORDERED: Furosemide 40 mg/4 ml IV VIAL IV ONE (17:34)
[2021-10-03] MEDS: SPIRIVA Respimat (tiotropium) 2.5 mcg/inh Inhaler INH SCH (21:05)
[2021-10-04] MEDS: oxyCODONE/Acetamin 5/325 mg TAB PO PRN ×3 (02:39→20:32)
[2021-10-04 05:59] LABS: Calcium 8.4 mg/dL (8.6-10.3); Magnesium 2.2 mg/dL (1.9-2.7); Potassium 3.9 mmol/L (3.5-5.0); eGFR CKD-EPI 40.1 (>60)
[2021-10-04] MEDS: SPIRIVA Respimat (tiotropium) 2.5 mcg/inh Inhaler INH SCH (08:19)
[2021-10-04] MEDS: CMC:FLUTICAS/UMECLI/VILANT 100-62.5-25 MDI (NF) INH SCH (08:19)
[2021-10-04 08:56] LABS: ABS Lymphocytes 1.8 10^3/ul (1.0-4.8); ABS Monocytes 0.6 10^3/ul (0-0.8); ABS Neutrophils 8.7 10^3/ul (1.5-7.7); Hematocrit 42 % (35-47); Hemoglobin 13.5 g/dL (12.0-16.0); Lymphocyte % 16.1 %; Mean Corpuscular HGB Conc 32 g/dL (31-36); Mean Corpuscular Hemoglobin 30 pg (27-31); Mean Corpuscular Volume 92 fL (80-97); Mean Platelet Volume 9.2 fL (7.4-10.4); Platelet Count 182 10^3/uL (150-450); Red Blood Count 4.57 10^6 /uL (3.70-4.87); Red Cell Distribution Width 17 % (10-15); White Blood Count 11.1 10^3/uL (3.5-10.8)
[2021-10-04 11:04] LABS: Urine Appearance Clear; Urine Bilirubin Negative (Negative); Urine Blood Negative (Negative); Urine Color Yellow; Urine Glucose Negative (Negative); Urine Ketones Negative (Negative); Urine Nitrite Negative (Negative); Urine Protein 2+(100 mg/dL) (Negative); Urine Specific Gravity 1.016 (1.002-1.030); Urine Urobilinogen Negative (Negative)
[2021-10-04 11:20] LABS: Urine Bacteria Absent (Absent); Urine Red Blood Cell Trace(0-2/hpf) (Absent); Urine White Blood Cell Trace(0-5/hpf) (Absent)
[2021-10-05] MEDS: SPIRIVA Respimat (tiotropium) 2.5 mcg/inh Inhaler INH SCH (07:44)
[2021-10-05] MEDS: CMC:FLUTICAS/UMECLI/VILANT 100-62.5-25 MDI (NF) INH SCH (07:44)
[2021-10-05] MEDS: oxyCODONE/Acetamin 5/325 mg TAB PO PRN ×3 (08:02→23:37)
[2021-10-05] MEDS ORDERED: Furosemide 40 mg/4 ml IV VIAL IV ONE (09:10)
[2021-10-05 09:58] LABS: Calcium 8.5 mg/dL (8.6-10.3); Magnesium 2.2 mg/dL (1.9-2.7); Potassium 3.9 mmol/L (3.5-5.0)
[2021-10-05 10:03] LABS: eGFR CKD-EPI 46.8 (>60)
[2021-10-06] MEDS ORDERED: Furosemide 40 mg/4 ml IV VIAL IV ONE (07:54)
[2021-10-06] MEDS: SPIRIVA Respimat (tiotropium) 2.5 mcg/inh Inhaler INH SCH (07:56)
[2021-10-06] MEDS: CMC:FLUTICAS/UMECLI/VILANT 100-62.5-25 MDI (NF) INH SCH (07:56)
[2021-10-06] MEDS: oxyCODONE/Acetamin 5/325 mg TAB PO PRN ×3 (09:06→23:30)
[2021-10-07 06:04] LABS: ABS Lymphocytes 1.4 10^3/ul (1.0-4.8); ABS Monocytes 0.6 10^3/ul (0-0.8); ABS Neutrophils 7.7 10^3/ul (1.5-7.7); Hematocrit 43 % (35-47); Lymphocyte % 14.8 %; Mean Corpuscular HGB Conc 33 g/dL (31-36); Mean Corpuscular Hemoglobin 30 pg (27-31); Mean Corpuscular Volume 92 fL (80-97); Mean Platelet Volume 8.7 fL (7.4-10.4); Nucleated Red Blood Cells % 0.1; Platelet Count 190 10^3/uL (150-450); Red Blood Count 4.67 10^6 /uL (3.70-4.87); Red Cell Distribution Width 16 % (10-15); White Blood Count 9.7 10^3/uL (3.5-10.8)
[2021-10-07 06:15] LABS: Calcium 8.5 mg/dL (8.6-10.3); Potassium 4.4 mmol/L (3.5-5.0)
[2021-10-07] MEDS: SPIRIVA Respimat (tiotropium) 2.5 mcg/inh Inhaler INH SCH (09:10)
[2021-10-07] MEDS: CMC:FLUTICAS/UMECLI/VILANT 100-62.5-25 MDI (NF) INH SCH (09:10)
[2021-10-07] MEDS: oxyCODONE/Acetamin 5/325 mg TAB PO PRN ×3 (09:21→21:35)
[2021-10-07] MEDS ORDERED: Furosemide 40 mg/4 ml IV VIAL IV ONE (12:45)
[2021-10-08 06:47] LABS: Calcium 8.8 mg/dL (8.6-10.3); Magnesium 1.9 mg/dL (1.9-2.7); Potassium 4.2 mmol/L (3.5-5.0); eGFR CKD-EPI 35.8 (>60)
[2021-10-08] MEDS ORDERED: Magnesium Sulfate 2 gm BAG 2 GM/50 ML BAG IVPB ONE (07:27)
[2021-10-08] MEDS: CMC:FLUTICAS/UMECLI/VILANT 100-62.5-25 MDI (NF) INH SCH (09:43)
[2021-10-08] MEDS: SPIRIVA Respimat (tiotropium) 2.5 mcg/inh Inhaler INH SCH (09:44)
[2021-10-08] MEDS: Furosemide 40 mg/4 ml IV VIAL IV SCH (09:44)
[2021-10-08] MEDS: oxyCODONE/Acetamin 5/325 mg TAB PO PRN ×3 (09:56→20:05)
[2021-10-09] MEDS: CMC:FLUTICAS/UMECLI/VILANT 100-62.5-25 MDI (NF) INH SCH (08:47)
[2021-10-09] MEDS: SPIRIVA Respimat (tiotropium) 2.5 mcg/inh Inhaler INH SCH (08:48)
[2021-10-09] MEDS: oxyCODONE/Acetamin 5/325 mg TAB PO PRN ×3 (09:02→21:19)
[2021-10-09] MEDS: Furosemide 40 mg/4 ml IV VIAL IV SCH (11:44)
[2021-10-10 07:28] LABS: Calcium 8.4 mg/dL (8.6-10.3)
[2021-10-10 07:34] LABS: eGFR CKD-EPI 37.9 (>60)
[2021-10-10] MEDS: CMC:FLUTICAS/UMECLI/VILANT 100-62.5-25 MDI (NF) INH SCH (07:39)
[2021-10-10] MEDS: SPIRIVA Respimat (tiotropium) 2.5 mcg/inh Inhaler INH SCH (07:39)
[2021-10-10] MEDS ORDERED: Benzocaine/Menthol LOZ PO PRN (08:58)
[2021-10-10] MEDS: oxyCODONE/Acetamin 5/325 mg TAB PO PRN ×2 (16:02→21:46)
[2021-10-11] MEDS: SPIRIVA Respimat (tiotropium) 2.5 mcg/inh Inhaler INH SCH (07:18)
[2021-10-11] MEDS: CMC:FLUTICAS/UMECLI/VILANT 100-62.5-25 MDI (NF) INH SCH (07:18)
[2021-10-11] MEDS: oxyCODONE/Acetamin 5/325 mg TAB PO PRN (08:48)
[2021-10-11 12:19] VITALS: BP 112/75
== END 2021-10-11 11:59 | disposition short-term general hospital (02) | DRG 308 ==
LOC: ED 07:57 → SUATTDRO 15:37 → EDHOLD 15:37 → MEDTELE 18:08
PROVIDERS: ADMIT Student in an Organized Health Care Education/Training Program; ATTEND Student in an Organized Health Care Education/Training Program

== ENCOUNTER 2021-10-11 10:59 | Inpatient (IN) ==
[2021-10-11] MEDS ORDERED: Albuterol HFA INHALER 8 gm MDI INH PRN (11:13)
[2021-10-12] MEDS ORDERED: CMC:FLUTICAS/UMECLI/VILANT 100-62.5-25 MDI (NF) INH SCH (09:00)
[2021-10-12 11:38] VITALS: BP 117/80
== END 2021-10-12 13:58 | disposition home or self-care (01) | DRG 308 ==
LOC: SUATTDRO 12:42 → MEDTELE 12:42
PROVIDERS: ADMIT Student in an Organized Health Care Education/Training Program; ATTEND Internal Medicine

== ENCOUNTER 2021-10-14 17:35 | Observation (INO) ==
[2021-10-14 18:23] LABS: ABS Basophils 0.1 10^3/ul (0-0.2); ABS Eosinophils 0.1 10^3/ul (0-0.6); ABS Lymphocytes 1.7 10^3/ul (1.0-4.8); ABS Monocytes 0.7 10^3/ul (0-0.8); ABS Neutrophils 6.6 10^3/ul (1.5-7.7); Eosinophil % 0.7 %; Hematocrit 52 % (35-47); Hemoglobin 17.3 g/dL (12.0-16.0); Mean Corpuscular HGB Conc 33 g/dL (31-36); Mean Corpuscular Hemoglobin 30 pg (27-31); Mean Corpuscular Volume 89 fL (80-97); Mean Platelet Volume 8.3 fL (7.4-10.4); Nucleated Red Blood Cells % 0.2; Platelet Count 240 10^3/uL (150-450); Red Blood Count 5.87 10^6 /uL (3.70-4.87); Red Cell Distribution Width 16 % (10-15); White Blood Count 9.2 10^3/uL (3.5-10.8)
[2021-10-14 18:44] LABS: INR 1.29 (0.86-1.15)
[2021-10-14 18:45] LABS: High Sens Troponin Baseline 20 pg/mL (<15)
[2021-10-14 18:50] LABS: ALT 42 U/L (7-52); Albumin 4.1 g/dL (3.2-5.2); Albumin/Globulin Ratio 1.4 (1-3); Alkaline Phosphatase 76 U/L (35-149); Blood Urea Nitrogen 66 mg/dL (6-24); CO2 Carbon Dioxide 26 mmol/L (22-32); Calcium 9.9 mg/dL (8.6-10.3); Chloride 99 mmol/L (101-111); Glucose 83 mg/dL (70-100); Sodium 137 mmol/L (135-145); Total Protein 7.1 g/dL (6.4-8.9); eGFR CKD-EPI 34.7 (>60)
[2021-10-14 19:23] LABS: Anion Gap 12 mmol/L (2-11)
[2021-10-14 19:38] LABS: High Sensitivity Troponin 1 Hr 15 pg/mL (<15)
[2021-10-14] MEDS ORDERED: Albuterol HFA INHALER 8 gm MDI INH PRN (23:52)
[2021-10-14] MEDS ORDERED: Acetaminophen IV 1 GM/100ML 100 ML IV ONE (23:52)
[2021-10-15] MEDS ORDERED: CMCS:FLUTICAS/UMECLI/VILANT 100-62.5-25 MDI (NF) INH SCH (09:00)
[2021-10-15] MEDS ORDERED: Aminophylline 25 MG/ML VIAL ONE (09:36)
[2021-10-15] MEDS ORDERED: Regadenoson 0.4 MG/5 ML SYRINGE ONE (09:36)
[2021-10-15 17:22] VITALS: BP 94/68
== END 2021-10-15 17:02 | disposition home or self-care (01) ==
LOC: MEDTELE 17:35 → ED 17:35 → SUATTDRO 23:47 → ED 10-15 01:26
PROVIDERS: ADMIT Internal Medicine; ATTEND Student in an Organized Health Care Education/Training Program